=== PATIENT | male | born 2000 | race Caucasian/White ===

== ENCOUNTER 2022-07-03 16:31 | Outpatient (CLI) | payer BC, SELFPAY ==
[2022-07-03 16:50] LABS: Basophils Absolute Auto 0.05 K/mm3 (0.00-0.10); Basophils Percent Auto 0.5 % (0.0-1.0); Eosinophils Absolute Auto 0.24 K/mm3 (0.02-0.50); Eosinophils Percent Auto 2.5 % (1.0-6.0); Hematocrit 44.1 % (40.0-54.0); Hemoglobin 14.7 g/dL (14.0-18.0); Immature Granulocyte Absolute 0.04 K/mm3 (0.00-0.00); Immature Granulocyte Percent A 0.4 % (0.0-0.0); Lymphocytes Percent Auto 24.8 % (18.0-42.0); Mean Corpuscular HGB Conc 33.3 g/dL (32.0-36.0); Mean Corpuscular Hemoglobin 29.2 pg (27.0-31.0); Mean Corpuscular Volume 87.5 fL (78.0-102.0); Monocytes Percent Auto 9.3 % (2.0-11.0); Neutrophils Absolute Auto 6.1 K/mm3 (1.7-7.2); Neutrophils Percent Auto 62.5 % (50.0-70.0); Platelet Count Result 275 K/mm3 (150-420); Red Blood Count 5.04 M/mm3 (4.70-6.10); Red Cell Distribution Width 12.2 % (11.6-14.4); White Blood Count 9.7 K/mm3 (4.8-10.8)
[2022-07-03 17:18] LABS: Hemoglobin A1C 5.3 % (<5.7)
[2022-07-03 17:29] LABS: Alanine Aminotransferase 135 U/L (16-63); Albumin Level 4.7 g/dL (3.4-5.0); Alkaline Phosphatase 82 U/L (46-116); Anion Gap 8 mmol/L (8-16); Aspartate Amino Transferase 34 U/L (15-37); Bilirubin,Total 1.5 mg/dL (0.00-1.00); Blood Urea Nitrogen 12 mg/dL (7-18); Carbon Dioxide 28 mmol/L (21-32); Chloride 104 mmol/L (98-108); Cholesterol 153 mg/dL (0-200); Estimated Glomerular Filt Rate > 60; Glucose 91 mg/dL (70-99); HDL Direct 32 mg/dL (40-60); LDL Cholesterol Calculated 100 mg/dL (<130); Osmolality Calculated 289 mOsm/kg (285-295); Potassium 4.6 mmol/L (3.5-5.1); Sodium 140 mmol/L (136-145); Thyroid Stimulating Hormone 1.08 uIU/mL (0.36-3.74); Total Protein 7.4 g/dL (6.4-8.2); Triglycerides 105 mg/dL (0-150)
== END 2022-07-03 16:32 | disposition home or self-care (01) ==
LOC: CHSLAB 16:33
PROVIDERS: PCP Nurse Practitioner Family; Visit Provider Nurse Practitioner Family
DX: R42 Dizziness and giddiness (principal); Z83.3 Family history of diabetes mellitus
CPT/HCPCS: 36415; 80053; 80061; 83036; 84443; 85025

== ENCOUNTER 2023-10-07 19:31 | Emergency (ER) | payer SELFPAY ==
[2023-10-07 19:39] VITALS: BP 142/92; PULSE 98; RESP 20; TEMP 36.7; O2SAT 96
--- NOTE | 2023-10-07 19:42 | ED.GENADULT ---
HPI - General Adult General Chief complaint: Anxiety Stated complaint: Anxiety Time Seen by Provider: 10/07/23 19:34 History of Present Illness HPI narrative: this is a 23-year-old male with history of anxiety presenting for anxiety attack. Patient was started on escitalopram several months ago. Overall his anxiety is improved until the last 3 days. He has become tearful and unable sleep at night. He cites multiple personal stressors including his recently becoming again after a miscarriage in march, his mother's been diagnosed with cancer and buying a new home. Patient denies suicidal or homicidal ideation. Patient does not have access to a firearm. No other physical complaints this time. Related Data Allergies Allergy/AdvReac Type Severity Reaction Status Date / Time Venlafaxine AdvReac Intermediate Sweating Uncoded 10/07/23 19:36 PMFSH Family History Family History Mother Depression Anxiety Scoliosis Chronic back pain Father Diabetes mellitus Chronic back pain Sibling Scoliosis Depression Anxiety Social History Social History Smoking status: Current every day smoker Tobacco type: e-cigarettes/vaping Alcohol intake: current Alcohol use details: occasional Substance use: current Substance use type: does not use Exam Narrative: APPEARANCE: tearful Head: atraumatic. EYES: EOMI, NOSE: Atraumatic NECK: Trachea midline RESPIRATORY: No increased rate of breathing CARDIOVASCULAR: RRR, ABDOMINAL: Non-distended MUSCULOSKELETAl: No obvious deformities NEURO: Alert. Moving 4/4 extremities SKIN:: Warm, dry. Normal color PSYCHIATRIC: patient is tearful crying Medical Decision Making MDM Narrative Medical decision making narrative: -Course: 23-year-old male presenting with increased anxiety. No SI HI. Patient will be given IM dose of Valium. Discharged on hydroxyzine. Has follow-up in 2 days -DDX includes but is not limited to: anxiety, panic disorder, adjustment disorder -Co-morbidities complicating care: anxiety depression -Interventions: 10 mg IM Valium -Shared decision making / Disposition: discharged -RX hydroxyzine Discharge Plan Discharge Clinical Impression: Anxiety Patient Disposition: Home, Self-Care Condition: Stable Instructions: Antibiotic Form, Anxiety (ED) Additional Instructions: please use hydroxyzine as needed. Please follow-up with your primary care physician your appointment on . Return if you develop thoughts of harming herself or others. Prescriptions: New hydroxyzine HCl 25 mg tablet 25 mg PO TID PRN (Reason: anxiety) Qty: 30 0RF No Action omeprazole 40 mg capsule,delayed release(DR/EC) 40 mg PO DAILY Qty: 90 2RF Rx Instructions: Take 1 capsule (40 mg) by mouth daily, preferably 30 mins-1 hour before meal. escitalopram oxalate [Lexapro] 10 mg tablet 10 mg PO DAILY 70 Days Qty: 70 0RF Follow-up/Referrals: Wally Potts APRN [Primary Care Provider] -
[2023-10-07] MEDS: diazePAM INJ (*CRX) 10 MG/2 ML SYRINGE IM (19:48)
[2023-10-07 20:18] VITALS: BP 133/74; PULSE 68; RESP 16; O2SAT 99
== END 2023-10-07 20:19 | disposition home or self-care (01) ==
PROVIDERS: Emergency Provider Emergency Medicine; PCP Nurse Practitioner Family
DX: F41.9 Anxiety disorder, unspecified (principal); F17.290 Nicotine dependence, other tobacco product, uncomplicated
CPT/HCPCS: 96372; 99283; J3360

== ENCOUNTER 2023-10-15 03:52 | Emergency (ER) | payer SELFPAY ==
[2023-10-15 04:11] VITALS: BP 134/66; PULSE 68; RESP 18; TEMP 37; O2SAT 99
--- NOTE | 2023-10-15 04:17 | ED.ANXIETY ---
HPI - Anxiety General Chief Complaint: Anxiety Stated Complaint: Panic Attack Time Seen by Provider: 10/15/23 04:09 Source: patient Mode of arrival: ambulatory Limitations: no limitations History of Present Illness HPI narrative: Patient is a 23-year-old male with some anxiety this evening. He is newly on a regimen of BuSpar and Xanax. He has not taken Xanax since yesterday. complaint: anxiety Onset (ago): week(s) Symptoms: sense of impending doom and muscle cramps Severity: moderate Quality: constant Place: home History of similar episodes: Yes Provoking factors: emotional stress and work/job stress Relieving factors: medication Exacerbating factors: medication Associated symptoms: denies other symptoms Related Data Allergies Allergy/AdvReac Type Severity Reaction Status Date / Time Venlafaxine AdvReac Intermediate Sweating Uncoded 10/15/23 04:05 Review of Systems Review of Systems: All systems reviewed & are unremarkable except as noted in HPI and below Constitutional: Constitutional: Reports no additional constitutional complaints Eyes: Eyes: Reports no additional eye complaints ENT: Reports system reviewed and no additional complaints, except as documented Cardiovascular: Cardiovascular: Reports no additional cardiovascular complaints Respiratory: Respiratory: Reports no additional respiratory complaints Gastrointestinal: Gastrointestinal: Reports no additional gastrointestinal complaints Genitourinary: Genitourinary: Reports no additional male genitourinary complaints Musculoskeletal: Musculoskeletal: Reports no additional musculoskeletal complaints Integumentary/Breasts: Skin/Breast: Reports system reviewed and no additional complaints, except as docu Neurologic: Reports system reviewed and no additional complaints, except as documented Psychiatric: Psychiatric: Reports no additional psychiatric complaints Endocrine: Endocrine: Reports no additional endocrine complaints Hematologic/Lymphatic: Hematologic/Lymphatic: Reports no additional hematologic/lymphatic complaints Allergic/Immunologic: Allergic/Immunologic: Reports no additional allergic/immunologic complaints PMFSH Family History Family History Mother Depression Anxiety Scoliosis Chronic back pain Father Diabetes mellitus Chronic back pain Sibling Scoliosis Depression Anxiety Social History Social History Smoking status: Current every day smoker Tobacco type: e-cigarettes/vaping Alcohol intake: current Alcohol use details: occasional Substance use: current Substance use type: does not use Exam Const: General: healthy appearing Nutritional Appearance: well nourished Orientation/consciousness: patient oriented x3 HENMT: Head: normal to inspection Ears: external ears normal Face/Nose/Sinus: Normal external nose present Eyes: Conjunctivae: conjunctivae normal Pupils: Equal, round and reactive pupils present EOM: EOMs intact bilaterally Neck: Neck: normal visual inspection Chest: Chest palpation & inspection: normal inspection of the chest Resp: Effort & Inspection: normal respiratory effort and not labored Auscultation: clear to auscultation bilaterally Cardio: Rate: regular rate Rhythm: regular rhythm Heart sounds: no murmurs GI: Inspection: non-distended GI Palp: Yes Soft to palpation and No Tenderness to palpation present (GI) Auscultation: normal bowel sounds : General: Yes bladder normal to palpation Back/Spine/Pelvis: Back: no CVA tenderness Skin: General skin exam: normal color Rashes: no rashes Wounds: no wounds Neuro: General: patient oriented x3 Cranial nerves: Yes Nystagmus not present Speech: normal speech Extrem: General: normal to inspection Psych: Mental Status: mental status grossly normal Affect: No normal affect, No Sad affect present and Anxious a
[2023-10-15] MEDS: LORazepam INJ (*CRX) 2 MG/ML VIAL 1 MG IM (04:39)
[2023-10-15 05:07] VITALS: BP 125/84; PULSE 58; RESP 16; O2SAT 98
== END 2023-10-15 05:08 | disposition home or self-care (01) ==
LOC: CHSED 05:03
PROVIDERS: Emergency Provider Emergency Medicine; PCP Nurse Practitioner Family
DX: F41.9 Anxiety disorder, unspecified (principal); F17.290 Nicotine dependence, other tobacco product, uncomplicated
CPT/HCPCS: 96372; 99283; J2060

== ENCOUNTER 2024-03-20 04:59 | Emergency (ER) | payer BC, SELFPAY ==
[2024-03-20 05:15] VITALS: BP 144/87; PULSE 56; RESP 15; TEMP 36.5; O2SAT 100
--- NOTE | 2024-03-20 06:06 | ED.BACK ---
HPI - Back Pain/Injury General Chief Complaint: Back Pain/Injury Stated Complaint: back pain Time Seen by Provider: 03/20/24 05:18 History of Present Illness HPI Narrative: Patient is a 23-year-old male who presents to the emergency department this evening complaining of lower back pain. Patient states that he was smoking weed and accidentally inhaled too much and started to cough violently, shortly after patient started to develop some lower back pain and patient believes that he pulled muscle. Denies any recent falls or trauma, denies any heavy lifting and denies any additional symptoms or concerns including any dysuria or hematuria. Patient denies any fevers or chills. Related Data Home Medications Medication Instructions Recorded Confirmed escitalopram oxalate 10 mg tablet 10 mg PO DAILY 03/21/24 03/21/24 Allergies Allergy/AdvReac Type Severity Reaction Status Date / Time Venlafaxine AdvReac Intermediate Sweating Uncoded 03/21/24 11:24 Review of Systems Review of Systems: All systems are reviewed and are negative unless stated otherwise in the HPI. PMFSH Family History Family History Mother Depression Anxiety Scoliosis Chronic back pain Father Diabetes mellitus Chronic back pain Sibling Scoliosis Depression Anxiety Social History Social History Smoking status: Current every day smoker Tobacco type: e-cigarettes/vaping Alcohol intake: current Alcohol use details: occasional Substance use: current Substance use type: does not use Exam Narrative: General: Alert, awake, afebrile, in no acute distress. HEENT: PERRL, no rhinorrhea, no post nasal drip, oropharynx clear. Cardiovascular: Regular rate and rhythm, no murmurs, rubs or gallops, no peripheral edema. Respiratory: Clear to auscultation bilaterally, no tachypnea, no wheezing, no rhonchi, no rubs, no respiratory distress. Abdomen: Soft, nontender, nondistended, no rebound, no guarding, no peritoneal signs. Musculoskeletal: No joint swelling or deformity, normal muscle tone. Back: Tenderness to palpation over the paraspinal lumbar region, no midline tenderness to palpation over the lumbar spine. Skin: No rashes or petechia, no signs of infection. Neurological: Alert and oriented to person, place, and time. Follows all commands. No focal deficits, speech is clear and fluent. Course Vital Signs Vital signs: Vital Signs Temperature 97.7 F 03/20/24 05:15 Pulse Rate 56 L 03/20/24 05:15 Respiratory Rate 15 03/20/24 05:15 Blood Pressure 144/87 H 03/20/24 05:15 Pulse Oximetry 100 03/20/24 05:15 Oxygen Delivery Room Air 03/20/24 05:15 Temperature 97.7 F 03/20/24 05:15 Pulse Rate 61 03/20/24 06:48 Respiratory Rate 15 03/20/24 06:48 Blood Pressure 146/80 H 03/20/24 06:48 Pulse Oximetry 100 03/20/24 06:48 Oxygen Delivery Room Air 03/20/24 05:15 MDM - Back Pain/Injury MDM Narrative Medical decision making narrative: The patient was evaluated by myself in the emergency department. History is obtained from patient who is an independent historian and physical exam was performed. External medical records were reviewed at this time. Patient was administered 15 mg of IM Toradol, Lidoderm patch and oral [place] 10-325 mg. Differential diagnosis considerations include musculoskeletal injury/ back sprain. Comorbidities impacting this visit include none. I have evaluated and discussed social determinants of health with the patient that could potentially impact subsequent diagnosis and treatment plans. On repeat assessment of the patient, reevaluation revealed that the patient is doing well and is in no acute distress. Patient symptoms have improved since he arrived to our emergency department. Repeat vital signs were all reviewed and noted to be stable. Differential tiffanie
[2024-03-20] MEDS: HYDROcodone/acetaminophen (*CRX) 10-325 MG TABLET 1 TAB PO (06:07)
[2024-03-20] MEDS: KETOROLAC 15 MG/ML VIAL (*BKC) IM (06:07)
[2024-03-20] MEDS: LIDOCAINE 5% PATCH 1 PATCH TRANSDERM (06:11)
[2024-03-20 06:48] VITALS: BP 146/80; PULSE 61; RESP 15; O2SAT 100
== END 2024-03-20 06:49 | disposition home or self-care (01) ==
PROVIDERS: Emergency Provider Emergency Medicine; PCP Nurse Practitioner Family
DX: S39.012A Strain of muscle, fascia and tendon of lower back, initial encounter (principal); X50.0XXA Overexertion from strenuous movement or load, initial encounter; F17.290 Nicotine dependence, other tobacco product, uncomplicated
CPT/HCPCS: 96372; 99283; A9270; J1885

== ENCOUNTER 2024-03-21 11:08 | Emergency (ER) | payer BC, SELFPAY ==
--- NOTE | ~2024-03-21 | XR_ITS ---
Lumbosacral Spine: AP and lateral views Clinical History: Pain Findings: The normal lordotic curve is maintained. The vertebral bodies and posterior elements are i ntact. The intervertebral disc spaces are preserved. The sacroiliac joints are normally outlined. Impression: No significant abnormality. Reviewed, dictated and finalized at [facility]. Impression: No significant abnormality.
--- NOTE | ~2024-03-21 | XR_ITS ---
AP and oblique views of the bilateral ribs, and PA and lateral chest radiographs Clinical History: Pain Findings: No rib fracture is seen. Osseous alignment is anatomic. Lungs are clear, without focal cons olidation or pleural effusion. Cardiomediastinal contour is within normal limits. Soft tissues are un remarkable. Impression: No rib fracture is seen. Clear lungs. Reviewed, dictated and finalized at location . Impression: No rib fracture is seen. Clear lungs.
[2024-03-21 11:09] VITALS: BP 148/111; PULSE 74; RESP 20; TEMP 36.4; O2SAT 96
--- NOTE | 2024-03-21 11:09 | ED.BACK ---
HPI - Back Pain/Injury General Chief Complaint: Back Pain/Injury Stated Complaint: back pain Time Seen by Provider: 03/21/24 11:09 Source: patient Mode of arrival: ambulatory Limitations: no limitations History of Present Illness HPI Narrative: patient is a 23-year-old male with lower back pain after coughing heavy yesterday. He also has pain up his spine and to the paraspinal areas. He had an injury over a month ago but that pain has resolved at this time. MD elicited complaint: back pain and back injury Pertinent past history: prior back pain Onset (ago): day(s) (1) Timing: constant Severity: severe Pain scale (0-10): 9 Similar Symptoms Previously: Yes Quality: sharp Location: lumbar spine Radiation: none Exacerbating factors: movement, walking, deep breaths, coughing/sneezing and lifting Relieving factors: immobilization and sitting upright Context: other ( patient was heavy coughing yesterday and sustained a pop sound in his musculoskeletal system and now he is having severe lumbar pain) Associated symptoms: denies other symptoms Related Data Home Medications Medication Instructions Recorded Confirmed escitalopram oxalate 10 mg tablet 10 mg PO DAILY 03/21/24 03/21/24 Allergies Allergy/AdvReac Type Severity Reaction Status Date / Time Venlafaxine AdvReac Intermediate Sweating Uncoded 03/21/24 11:24 Review of Systems Review of Systems: All systems reviewed & are unremarkable except as noted in HPI and below Constitutional: Constitutional: Reports no additional constitutional complaints Eyes: Eyes: Reports no additional eye complaints ENT: Reports system reviewed and no additional complaints, except as documented Cardiovascular: Cardiovascular: Reports no additional cardiovascular complaints Respiratory: Respiratory: Reports no additional respiratory complaints Gastrointestinal: Gastrointestinal: Reports no additional gastrointestinal complaints Genitourinary: Genitourinary: Reports no additional male genitourinary complaints Musculoskeletal: Musculoskeletal: Reports no additional musculoskeletal complaints Integumentary/Breasts: Skin/Breast: Reports system reviewed and no additional complaints, except as docu Neurologic: Reports system reviewed and no additional complaints, except as documented Psychiatric: Psychiatric: Reports no additional psychiatric complaints Endocrine: Endocrine: Reports no additional endocrine complaints Hematologic/Lymphatic: Hematologic/Lymphatic: Reports no additional hematologic/lymphatic complaints Allergic/Immunologic: Allergic/Immunologic: Reports no additional allergic/immunologic complaints PMFSH Family History Family History Mother Depression Anxiety Scoliosis Chronic back pain Father Diabetes mellitus Chronic back pain Sibling Scoliosis Depression Anxiety Social History Social History Smoking status: Current every day smoker Tobacco type: e-cigarettes/vaping Alcohol intake: current Alcohol use details: occasional Substance use: current Substance use type: does not use Exam Const: General: healthy appearing Nutritional Appearance: well nourished Orientation/consciousness: patient oriented x3 HENMT: Head: normal to inspection Ears: external ears normal Face/Nose/Sinus: Normal external nose present Eyes: Conjunctivae: conjunctivae normal Pupils: Equal, round and reactive pupils present EOM: EOMs intact bilaterally Neck: Neck: normal visual inspection Chest: Chest palpation & inspection: normal inspection of the chest Resp: Effort & Inspection: normal respiratory effort and not labored Auscultation: clear to auscultation bilaterally and no crackles Cardio: Rate: regular rate Rhythm: regular rhythm Heart sounds: no murmurs GI: Inspection: non-distended Auscultation: normal bowel sounds, bowel sounds presen
[2024-03-21] MEDS: ORPHENADRINE CITRATE 30 MG/ML 2 ML VIAL 60 MG IM (11:35)
[2024-03-21] MEDS: KETOROLAC (*BKC) 60 MG/2 ML VIAL IM (11:35)
== END 2024-03-21 12:04 | disposition home or self-care (01) ==
PROVIDERS: Emergency Provider Emergency Medicine; PCP Nurse Practitioner Family
DX: S39.012A Strain of muscle, fascia and tendon of lower back, initial encounter (principal); F17.290 Nicotine dependence, other tobacco product, uncomplicated; X58.XXXA Exposure to other specified factors, initial encounter
CPT/HCPCS: 71046; 71110; 72100; 96372; 99284; J1885; J2360

== ENCOUNTER 2024-04-02 13:49 | Emergency (ER) | payer BC, SELFPAY ==
--- NOTE | ~2024-04-02 | CT_ITS ---
EXAMINATION: CT abd pelvis lumbar wo con DATE: 04/02/2024 15:31 INDICATION: Low back pain and scrotal pain TECHNIQUE: Computed tomography (CT) of the abdomen, pelvis and lumbar spine was performed without int ravenous contrast. Automated exposure control and iterative reconstruction technique were employed. T he dose-length product was 1395.98 mGy-cm. COMPARISON: None FINDINGS: Lung bases are clear. Heart size is normal. No pericardial or pleural effusion. Liver, gallbladder, s pleen, pancreas, bilateral adrenal glands and kidneys are normal. No urolithiasis. Bladder is normal. Bowels including the appendix are normal. No free intraperitoneal gas or fluid. No pathologically en larged abdominal or pelvic lymphadenopathy. Tiny fat-containing umbilical hernia. Mild likely physiol ogic anterior wedging at T11 and T12. Lumbar vertebral body heights are normal. Bilateral mild bilate ral lumbar facet osteoarthritis. Mild disc height loss at L4-L5 and at multiple levels in the lower t horacic spine. There is an associated disc bulge at L4-L5 which contributes to mild central canal tere nosis and narrowing of the left and right lateral recesses as well as mild bilateral neural foraminal stenosis. IMPRESSION: 1. No acute intra-abdominal/pelvic process. 2. Mild lumbar spondylosis. Reviewed, dictated and finalized at location B.
--- NOTE | ~2024-04-02 | US_ITS ---
TESTICULAR ULTRASOUND (Doppler ultrasound interrogation techniques used as needed for this exam.) Ordering provider: Екатерина Reardon History: . mckenzie pain, lbp . Comparison: None. FINDINGS: TESTICLES: Normal in size. The right measures 5.4x 2.8x 3.8 cm and the left measures 4.9x 2.3x 3.2 cm . Normal echogenicity bilaterally without mass lesion. Normal Doppler flow bilaterally. EPIDIDYMIDES: Normal in size. The right measures 0.7 cm and the left 0.6 cm. Normal echogenicity bila terally. Both demonstrate normal Doppler flow. Tiny Cyst is seen in the tail of the left epididymis. HYDROCELE: Small right. VARICOCELE: Left. OTHER ABNORMALITY: None seen. IMPRESSION: Tiny cyst in the tail of the left epididymis. Left varicocele. Otherwise, normal testicular ultrasoun d. Reviewed, dictated and finalized at location A. IMPRESSION: Tiny cyst in the tail of the left epididymis. Left varicocele. Otherwise, rudy l testicular ultrasound.
[2024-04-02 13:51] VITALS: BP 120/76; PULSE 72; RESP 18; TEMP 36.4; O2SAT 100
--- NOTE | 2024-04-02 14:43 | ED.BACK ---
HPI - Back Pain/Injury General Chief Complaint: Back Pain/Injury <SIOMARA Haynes Last Filed: 04/02/24 15:00> Stated Complaint: back problems <SIOMARA Haynes Last Filed: 04/02/24 15:00> Time Seen by Provider: 04/02/24 14:43 <SIOMARA Haynes Last Filed: 04/02/24 15:00> Focused HPI: Patient is a 23 y/o male who presents to the ED with c/o low back pain. Patient reports he strained his back several weeks ago after coughing. He has had persistent pain in his lower back radiating into his hips and legs since then. He was seen in the ED here, was also seen at [place] ED and by his PCP. Was referred to have an MRI, but states his insurance refused this. He has been taking [place] for the pain. Last took this this morning. He reports he has had intermittent numbness in his left leg since before he injured his back, but over the last few days, he has been having intermittent numbness throughout his groin and both legs. He also reports having pain in his scrotum. Denies dysuria, hematuria, bowel or bladder incontinence, weakness, fevers. GENERAL: Well-appearing, obese with BMI of 34.7, and in no acute distress. HEAD: Normocephalic, atraumatic. CHEST: Clear to auscultation. ?No respiratory distress. HEART: Regular rate and rhythm.? BACK: Diffuse tenderness throughout lumbosacral region. No appreciable midline tenderness. No palpable bony deformities or step offs. NEURO: ?Alert and oriented x3. Patient screened in triage and initial orders placed.? ?Additional care and disposition to be based upon?diagnostic testing and treatment. <SIOMARA Haynes Last Filed: 04/02/24 15:00> Source: patient and old records reviewed <SIOMARA Haynes Last Filed: 04/02/24 15:00> Mode of arrival: ambulatory <SIOMARA Haynes Last Filed: 04/02/24 15:00> Limitations: no limitations <Екатерина Reardon PA-C - Last Filed: 04/02/24 15:00> History of Present Illness HPI Narrative: agree with the above with the following additions/corrections: Patient continues to have low back problems for the past 3 weeks. He notes that radiates down his legs and into his groin. He will occasionally experience numbness into his groin as well as anterior thighs that this occurs intermittently bilaterally although he states pain predominates over paresthesias. These issues stop at his kneecaps. Patient Experiences relief with lying down. No bladder or bowel incontinence. No difficulty with getting a penile erection. He has been seen here and [place] and his primary care physician Dr Fenton ([facility]) had ordered an MRI but it was initially declined by insurance as he has not been sympatomatic for enough time. <Corinna Moreland MD - Last Filed: 04/03/24 08:51> Related Data Allergies/Adverse Reactions: Allergies Allergy/AdvReac Type Severity Reaction Status Date / Time Venlafaxine AdvReac Intermediate Sweating Uncoded 04/02/24 13:50 <Екатерина Reardon PA-C - Last Filed: 04/02/24 15:00> PMFSH Family History Family History: Family History Mother Depression Anxiety Scoliosis Chronic back pain Father Diabetes mellitus Chronic back pain Sibling Scoliosis Depression Anxiety <Екатерина Reardon PA-C - Last Filed: 04/02/24 15:00> Social History Social History: Social History Smoking status: Current every day smoker Tobacco type: e-cigarettes/vaping Alcohol intake: current Alcohol use details: occasional Substance use: current Substance use type: does not use <Екатерина Reardon PA-C - Last Filed: 04/02/24 15:00> Exam Narrative: GENERAL: Well-appearing, well-nourished, in mild acute distress. HEAD: Normocephalic, atraumatic. EYES: Non injected, non icteric ENT: N
[2024-04-02] MEDS: methocarbamoL 500 MG TABLET 1000 MG PO (14:54)
[2024-04-02] MEDS: ACETAMINOPHEN 500 MG TABLET 1000 MG PO (14:54)
[2024-04-02] MEDS: methylPREDNISolone SOD SUCC 125 MG VIAL IM (14:55)
[2024-04-02] MEDS: KETOROLAC (*BKC) 60 MG/2 ML VIAL IM (14:55)
[2024-04-02 15:59] LABS: Add Urine Microscopic? NO; Appearance Urine Clear (Clear); Bilirubin Urine Negative (Negative); Blood Urine Negative (Negative); Color Urine Yellow (Yellow); Glucose Urine UA Negative (Negative); Ketones Urine Negative (Negative); Leukocyte Esterase Ur Negative LEU/UL (Negative); Nitrate Urine Negative (Negative); Protein Urine Negative (Negative); Specific Grav Ur 1.026 (1.001-1.035); Urobilinogen Urine 0.2 mg/dL (<2.0)
[2024-04-02 17:29] LABS: Basophils Absolute Auto 0.1 K/mm3 (0.0-0.1); Basophils Percent Auto 0.6 % (0.2-1.2); Eosinophils Absolute Auto 0.1 K/mm3 (0-0.3); Eosinophils Percent Auto 0.7 % (0-4.4); Hematocrit 44.3 % (42.0-52.0); Hemoglobin 15.3 g/dL (14.0-18.0); Immature Granulocyte Absolute 0.06 K/mm3 (0.00-0.031); Immature Granulocyte Percent A 0.6 % (0-0.5); Lymphocytes Absolute Auto 1.19 K/mm3 (0.9-3.2); Lymphocytes Percent Auto 11.4 % (18.3-44.2); Mean Corpuscular HGB Conc 34.5 g/dl (32-36); Mean Corpuscular Hemoglobin 30.1 pg (26-34); Mean Platelet Volume 8.9 fl (7.4-10.4); Monocytes Absolute Auto 0.4 K/mm3 (0.1-0.6); Monocytes Percent Auto 3.3 % (2.6-8.5); Neutrophils Absolute Auto 8.7 K/mm3 (1.3-6.7); Neutrophils Percent Auto 83.4 % (45.5-73.1); Platelet Count Result 256 k/mm3 (150-375); Red Blood Count 5.09 M/mm3 (4.6-6.20); Red Cell Distribution Width 11.9 % (11.5-14.5); White Blood Count 10.5 K/mm3 (4.5-10.0)
[2024-04-02 17:38] LABS: Alanine Aminotransferase 29 U/L (6-50); Albumin Level 4.7 g/dL (3.5-5.1); Alkaline Phosphatase 48 U/L (38-126); Anion Gap 11 mmol/L (4-12); Aspartate Amino Transferase 24 U/L (17-59); Bilirubin,Total 1.3 mg/dL (0.2-1.3); Blood Urea Nitrogen 12 mg/dL (9-20); Calcium 9.3 mg/dL (8.4-10.2); Carbon Dioxide 22 mmol/L (22-30); Chloride 103 mmol/L (98-107); Creatine Kinase 74 U/L (55-170); Estimated CRCL calculation 184 ml/min; Estimated Glomerular Filt Rate > 60; Glucose 99 mg/dL (65-110); Magnesium 1.9 mg/dL (1.6-2.3); Potassium 3.8 mmol/L (3.4-5.0); Sodium 136 mmol/L (137-145)
[2024-04-02 17:42] LABS: Trichomonas Vag PCR NOT DETECTED (NOT DETECTE)
[2024-04-02 18:04] LABS: Chlamydia trachomatis NOT DETECTED (NOT DETECTE); Neisseria gonorrhoeae PCR NOT DETECTED (NOT DETECTE)
[2024-04-02 19:06] VITALS: BP 128/80; PULSE 86; RESP 20; O2SAT 97
[2024-04-02] MEDS: HYDROcodone/acetaminophen (*CRX) 5-325 MG TABLET 1 TAB PO (19:12)
== END 2024-04-02 19:18 | disposition home or self-care (01) ==
PROVIDERS: Physician Assistant; Emergency Provider Student in an Organized Health Care Education/Training Program; PCP Nurse Practitioner Family
DX: N50.3 Cyst of epididymis (principal); I86.1 Scrotal varices; M47.816 Spondylosis without myelopathy or radiculopathy, lumbar region; D72.829 Elevated white blood cell count, unspecified; N50.82 Scrotal pain; F17.290 Nicotine dependence, other tobacco product, uncomplicated; Z79.899 Other long term (current) drug therapy
CPT/HCPCS: 36415; 72131; 74176; 76870; 80053; 81003; 82550; 83735; 85025; 87491; 87591; 87661; 93976; 96372; 99284; A9270; J1885; J2919

== ENCOUNTER 2024-10-12 16:55 | Outpatient (CLI) | payer OTHER, SELFPAY ==
--- OUTSIDE RECORDS SUMMARY | 2024-10-12 18:45 | XMS_ITS | Clinical Summary ---
Author Organization [facility] Address [address] [place] [address] Care Team Providers Care Nurse Behavioral Health Care Name Role Phone Wally Potts SENIOR COURT OFFICE ASSISTANT-LEAN ENGINEER Primary Care Provider [phone] Source Comments [facility],non-owned Affiliates and Associated Physician Practices is amultiple site organization consisting of ambulatory clinics and hospital sitesin [place], [place], [place] and [place]. This disclosure is being madepursuant to the Care Everywhere program and may not contain all information available regarding this patient. Last updated 18.[facility] Allergies No known active allergies Medications * Be aware that medications may not be up to date on this document. Alwaysverify current medications with the patient. Medication Sig Dispensed Refills Start Date End Date Status famotidine (Pepcid) 20 MG tablet Take 1 (one) tablet by mouth every 12 hours for 15 days 30 tablet 07/26/2024 Active Encounters Date Type Department Care Team Description 07/25/2024 10:58 PM WAREHOUSE OPERATIONS ASSOCIATE - 07/26/2024 4:02 AM WAREHOUSE OPERATIONS ASSOCIATE Emergency ER at [address] [address] Keysha Stone MD Nausea and vomiting, unspecified vomiting type; Abdominal pain, generalized Discharge Disposition: Home or Self Care 07/25/2024 Travel from Last 3 Months Social History Tobacco Use Types Packs/Day Years Used Date Smoking Tobacco: Never Assessed Sex and Gender Information Value Date Recorded Sex Assigned at Not on file Gender Identity Not on file Sexual Orientation Not on file Last Filed Vital Signs Vital Sign Reading Time Taken Comments Blood Pressure 144/87 07/26/2024 4:00 AM WAREHOUSE OPERATIONS ASSOCIATE Pulse 53 07/26/2024 4:00 AM WAREHOUSE OPERATIONS ASSOCIATE Temperature 36.7 C (98 F) 07/26/2024 4:00 AM WAREHOUSE OPERATIONS ASSOCIATE Respiratory Rate 13 07/26/2024 4:00 AM WAREHOUSE OPERATIONS ASSOCIATE Oxygen Saturation 98% 07/26/2024 4:00 AM WAREHOUSE OPERATIONS ASSOCIATE Inhaled Oxygen Concentration - - Weight 122.5 kg (270 lb) 07/25/2024 11:00 PM WAREHOUSE OPERATIONS ASSOCIATE Height 182.9 cm (6') 07/25/2024 11:00 PM WAREHOUSE OPERATIONS ASSOCIATE Body Mass Index 36.62 07/25/2024 11:00 PM WAREHOUSE OPERATIONS ASSOCIATE Plan of Treatment Health Maintenance Due Date Last Done Comments HIV SCREENING 2014 HPV VACCINE (1 - Male 3-dose series) 2014 HEPATITIS C SCREENING 07/14/2017 DTAP/TDAP/TD VACCINES (1 - Tdap) 2018 HEPATITIS B VACCINE (1 of 3 - 19+ 3-dose series) 2018 COVID-19 VACCINE (1 - 2023-2 5 season) 2024 INFLUENZA VACCINE (#1) 2024 DEPRESSION SCREENING 07/21/2024 ZOSTER VACCINE (1 of 2) 2049 HIB VACCINE Aged Out No longer eligi ble based on patient's age to complete this topic MENINGOCOCCAL (Group B) VACC INE SHARED DECISION-MAKING Aged Out No longer eligibl e based on patient's age to complete this topic MENINGOCOCCAL GROUPS A/C/Y/W VACCINE Aged Out No longer eligible b ased on patient's age to complete this topic PNEUMOCOCCAL VACCINE Aged Out No long er eligible based on patient's age to complete this topic Procedures Procedure Name Priority Date/Time Associated Diagnosis Comments CT ABDOMEN PELVIS W CONTRAST STAT 07/26/2024 2:35 AM WAREHOUSE OPERATIONS ASSOCIATE Nausea and vomiting, unspecified vomiting type Abdominal pain, generalized PT-INR STAT 07/25/2024 11:50 PM WAREHOUSE OPERATIONS ASSOCIATE SARS-COV-2 (COVID-19) FLU A/B RSV PCR RAPID STAT 07/25/2024 11:40 PM WAREHOUSE OPERATIONS ASSOCIATE XR CHEST 1VW PORTABLE STAT 07/25/2024 11:39 PM WAREHOUSE OPERATIONS ASSOCIATE Nausea and vomiting, unspecified vomiting type MAGNESIUM BLOOD STAT 07/25/2024 11:36 PM WAREHOUSE OPERATIONS ASSOCIATE LIPASE BLOOD STAT 07/25/2024 11:36 PM WAREHOUSE OPERATIONS ASSOCIATE COMPREHENSIVE METABOLIC PANEL STAT 07/25/2024 11:36 PM WAREHOUSE OPERATIONS ASSOCIATE CBC W AUTO DIFFERENTIAL STAT 07/25/2024 11:36 PM WAREHOUSE OPERATIONS ASSOCIATE from Last 3 Months Results * CT ABDOMEN PELVIS W CONTRAST (07/26/2024 2:35 AM WAREHOUSE OPERATIONS ASSOCIATE) Anatomical Region Laterality Modality Abdomen, Pelvis Computed Tomogra phy 07/26/2024 7:17 AM WAREHOUSE OPERATIONS ASSOCIATE Impressions 07/26/2024 7:30 AM WAREHOUSE OPERATIONS ASSOCIATE IMPRESSION: UNREMARKABLE EXAMINATION. > Interpreting Provider: Mindy Cary MD on 07/26/2024 7:30 AM Narrative 07/26/2024 7:30 [address] WAREHOUSE OPERATIONS ASSOCIATE CT ABDOMEN WITH CONTRAST CT PELVIS WITH CONTRAST CLINICAL INDICATION: Severe acute abdominal pain with nausea and vomiting. COMPARISON: None available TECHNIQUE: Preliminary interpretation was provided by [facility]. Axial CT images from the lung bases through the pubic symphysis were obtained following 100 cc Isovue-370 intravenous contrast administration. Oral contrast was not administered. Coronal and sagittal multiplanar reformats were created. All CT scans at [facility] are performed using dose optimization techniques as appropriate to a performed exam to include AEC and Adjustment of mA and/or kV according to patient size. FINDINGS: Liver, spleen, gallbladder, kidneys, adrenal glands, and pancreas are within normal limits. Small and large bowel loops normal in caliber. No bowel wall thickening. Appendix normal. Prostate gland normal in size. Bladder wall normal in thickness. No osteoblastic or osteolytic lesions. No acute bony abnormalities. Procedure Note Mindy Cary MD - 07/26/[address] CT [address] WITH CONTRAST CT PELVIS WITH CONTRAST CLINICAL INDICATION: Severe acute abdominal pain with nausea andvomiting. COMPARISON: None available TECHNIQUE: Preliminary interpretation was provided by [facility]. Axial CT images from the lung bases through the pubic symphysis were obtained following 100 cc Isovue-370 intravenous contrastadministration. Oral contrast was not administered. Coronal and sagittal multiplanar reformats were created. All CT scans at [facility] are performed using dose optimization techniques as appropriate to a performed exam to includeAEC and Adjustment of mA and/or kV according to patient size. FINDINGS: Liver, spleen, gallbladder, kidneys, adrenal glands, and pancreas are within normal limits. Small and large bowel loops normal in caliber. No bowel wall thickening. Appendix normal. Prostate gland normal in size. Bladder wall normal in thickness. No osteoblastic or osteolytic lesions. No acute bony abnormalities. IMPRESSION: UNREMARKABLE EXAMINATION. > Interpreting Provider: Mindy Cary MD on 07/26/2024 7:30 AM Keysha Stone MD CT ORDERABLES * PT-INR (07/25/2024 11:50 PM WAREHOUSE OPERATIONS ASSOCIATE) Pathologist [facility] PT 13.5 12.1 - 14.8 sec 07/26/2024 12:31 AM WAREHOUSE OPERATIONS ASSOCIATE [facility] INR 1.0 0.9 - 1.1 07/26/2024 12:31 AM WAREHOUSE OPERATIONS ASSOCIATE [facility] Blood BLOOD SPECIMEN / Unknown Venipuncture / Unknown 07/25/2024 11:50 PM WAREHOUSE OPERATIONS ASSOCIATE 07/26/2024 12:16 AM WAREHOUSE OPERATIONS ASSOCIATE Narrative [facility] - 07/26/2024 12:31 AM WAREHOUSE OPERATIONS ASSOCIATE Conventional Warfarin Anticoagulant Therapy: INR Reference Range: 2.0-3.0 Intensive Warfarin Anticoagulant Therapy: INR Reference Range: 2.5-3.5 Keysha Stone MD LAB - COAGULATION ORDERABLES Performing Organization Address City/State/[facility] Co de Phone Number [facility] [address] [place] [address] * SARS-COV-2 (COVID-19) FLU A/B RSV PCR RAPID (07/25/2024 11:40 PM WAREHOUSE OPERATIONS ASSOCIATE) Pathologist [facility] COVID-19 PCR Not detected Not detected 07/26/19 12:25 AM WAREHOUSE OPERATIONS ASSOCIATE [facility] Influenza A PCR Not detected Not detected 07/26/2024 12:25 AM WAREHOUSE OPERATIONS ASSOCIATE [facility] Influenza B PCR Not detected Not detected 07/26/2024 12:25 AM [facility] RSV PCR Not detected Not detected 07/26/2024 12:25 AM WAREHOUSE OPERATIONS ASSOCIATE [facility] Microbiology SPECIMEN FROM NASOPHARYNGEAL STRUCTURE / Unknown Collection / Unknown 07/25/2024 11:40 PM WAREHOUSE OPERATIONS ASSOCIATE 07/25/2024 11:48 PM WAREHOUSE OPERATIONS ASSOCIATE Narrative [facility] - 07/26/2024 12:25 AM WAREHOUSE OPERATIONS ASSOCIATE This nucleic acid amplification assay has been authorized by the Food and Drug administration (FDA) under an Emergency Use Authorization (EUA). This test is only authorized for the duration of time the declaration that circumstances exist justifying the authorization of emergency use of in vitro diagnostic tests for detection of SARS-CoV-2 virus and/or diagnosis of COVID-19 infection under section 564(b)(1) of the Act, 21 U.S.C 360bbb-3 (b)(1), unless the authorization is terminated or revoked sooner. Fact Sheets for this EUA assay are available upon request. Idalia Sharma APRN-LEAN ENGINEER LAB - MICROBIOLO GY ORDERABLES Performing Organization Address City/State/[facility] Co de Phone Number [facility] [address] [place] [id number] * XR CHEST 1VW PORTABLE (07/25/2024 11:39 PM WAREHOUSE OPERATIONS ASSOCIATE) Anatomical Region Laterality Modality Chest Computed Radiogr aphy 07/26/2024 8:28 AM WAREHOUSE OPERATIONS ASSOCIATE Impressions 07/26/2024 8:28 AM WAREHOUSE OPERATIONS ASSOCIATE IMPRESSION: No acute disease. > Interpreting Provider: Jack Anderson MD on 07/26/2024 8:28 AM Narrative 07/26/2024 8:28 AM WAREHOUSE OPERATIONS ASSOCIATE Portable Chest AP History: Bloody emesis.. FINDINGS: Lungs are clear. No pleural effusion or pneumothorax seen. Cardiac silhouette within normal limits. Procedure Note Jack Anderson MD - 07/26/2024 Portable Chest AP History: Bloody emesis.. FINDINGS: Lungs are clear. No pleural effusion or pneumothorax seen. Cardiac silhouette within normal limits. IMPRESSION: No acute disease. > Interpreting Provider: Jack Anderson MD on 07/26/2024 8:28 AM Keysha Stone MD DIAGNOSTIC IMAGING ORDERABLES * (ABNORMAL) CBC W AUTO DIFFERENTIAL (07/25/2024 11:36 PM WAREHOUSE OPERATIONS ASSOCIATE) WBC 14.9(H) 4.0 - 10.7 x10E9/L 07/25/2024 11:48 PM [facility] RBC Count 5.63 4.30 - 5.80 x10E12/L 07/25/2024 11:48 PM [facility] Hemoglobin 16.7 13.3 - 17.5 g/dL 07/25/2024 11:48 PM [facility] Hematocrit 47.3 38.7 - 51.1 % 07/25/2024 11:48 PM [facility] MCV 84.0 80.0 - 98.0 fL 07/25/2024 11:48 PM [facility] MCH 29.7 26.7 - 33.6 pg 07/25/2024 11:48 PM [facility] MCHC 35.3 31.7 - 36.3 g/dL 07/25/2024 11:48 PM [facility] RDW-CV 11.8 11.3 - 14.8 % 07/25/2024 11:48 PM [facility] Platelet Count 329 150 - 420 x10E9/L 07/25/2024 11:48 PM [facility] MPV 8.8 7.8 - 11.4 fL 07/25/2024 11:48 PM [facility] Neutrophil % 73.4 41.0 - 74.0 % 07/25/2024 11:48 PM [facility] Lymphocyte % 15.4(L) 17.0 - 47.0 % 07/25/2024 11:48 PM [facility] Monocyte % 10.0 3.0 - 11.0 % 07/25/2024 11:48 PM [facility] Eosinophil % 0.4 0.0 - 7.0 % 07/25/2024 11:48 PM [facility] Basophil % 0.5 0.0 - 1.6 % 07/25/2024 11:48 PM [facility] Immature Granulocytes % 0.3 0.0 - 1.0 % 07/25/2024 11:48 PM [facility] Neutrophil Absolute 10.90(H) 1.60 - 7.50 x10E9/L 07/25/2024 11:48 PM [facility] Lymphocyte Absolute 2.29 1.00 - 4.40 x10E9/L 07/25/2024 11:48 PM [facility] Monocyte Absolute 1.48(H) 0.15 - 1.00 x10E9/L 07/25/2024 11:48 PM [facility] Eosinophil Absolute 0.06 0.00 - 0.60 x10E9/L 07/25/2024 11:48 PM [facility] Basophil Absolute 0.07 0.00 - 0.13 x10E9/L 07/25/2024 11:48 PM [facility] Blood BLOOD SPECIMEN / Unknown Venipuncture / Unknown 07/25/2024 11:36 PM WAREHOUSE OPERATIONS ASSOCIATE 07/25/2024 11:43 PM [facility] Keysha Stone MD LAB - HEMATOLOGY O RDERABLES [facility] [address] [place] [address] * (ABNORMAL) COMPREHENSIVE METABOLIC PANEL (07/25/2024 11:36 PM WAREHOUSE OPERATIONS ASSOCIATE) Glucose 122(H) 70 - 99 mg/dL 07/26/2024 12:01 AM [facility] Sodium 141 136 - 145 mmol/L 07/26/2024 12:01 AM [facility] Potassium 3.6 3.5 - 5.1 mmol/L 07/26/2024 12:01 AM [facility] Chloride 106 98 - 107 mmol/L 07/26/2024 12:01 AM [facility] CO2 20(L) 22 - 29 mmol/L 07/26/2024 12:01 AM [facility] Calcium 10.2 8.4 - 10.4 mg/dL 07/26/2024 12:01 AM [facility] Anion Gap 15 6 - 16 mmol/L 07/26/2024 12:01 AM [facility] BUN 8 5.3 - 18.7 mg/dL 07/26/2024 12:01 AM [facility] Creatinine 0.93 0.72 - 1.25 mg/dL 07/26/2024 12:01 AM [facility] Alkaline Phosphatase 60 40 - 150 U/L 07/26/2024 12:01 AM [facility] ALT 46 0 - 55 U/L 07/26/2024 12:01 AM [facility] AST 27 5 - 34 U/L 07/26/2024 12:01 AM [facility] Protein Total 8.0 6.4 - 8.3 gm/dL 07/26/2024 12:01 AM [facility] Albumin 5.1(H) 3.4 - 5.0 gm/dL 07/26/2024 12:01 AM [facility] Bilirubin Total 1.7(H) 0.2 - 1.2 mg/dL 07/26/2024 12:01 AM [facility] eGFR by CKD-EPI >90 >=90 mL/min/1.7 3 m2 07/26/2024 12:01 AM [facility] Blood BLOOD SPECIMEN / Unknown Venipuncture / Unknown 07/25/2024 11:36 PM WAREHOUSE OPERATIONS ASSOCIATE 07/25/2024 11:43 PM WAREHOUSE OPERATIONS ASSOCIATE Keysha Stone MD LAB - CHEMISTRY OR DERABLES Performing Organization Address [facility] de Phone Number [facility] [id number] [place] [address] * MAGNESIUM BLOOD (07/25/2024 11:36 PM WAREHOUSE OPERATIONS ASSOCIATE) Magnesium 2.1 1.6 - 2.6 mg/dL 07/26/2024 12:01 AM [facility] Blood BLOOD SPECIMEN / Unknown Venipuncture / Unknown 07/25/2024 11:36 PM WAREHOUSE OPERATIONS ASSOCIATE 07/25/2024 11:43 PM WAREHOUSE OPERATIONS ASSOCIATE Keysha Stone MD LAB - CHEMISTRY OR DERABLES Performing Organization Address [facility] Co de Phone Number [facility] [address] [place] [address] * LIPASE BLOOD (07/25/2024 11:36 PM WAREHOUSE OPERATIONS ASSOCIATE) Lipase 11 <60 U/L 07/26/2024 12:01 AM WAREHOUSE OPERATIONS ASSOCIATE [facility] Blood BLOOD SPECIMEN / Unknown Venipuncture / Unknown 07/25/2024 11:36 PM WAREHOUSE OPERATIONS ASSOCIATE 07/25/2024 11:43 PM WAREHOUSE OPERATIONS ASSOCIATE Keysha Stone MD LAB - CHEMISTRY OR DERABLES [facility] [address] [place] [address] from Last 3 Months Care Teams Nurse Behavioral Health Care Relationship Specialty Start Date End Date Wally Potts APRN-LEAN ENGINEER [address] [place] [address] PCP - General 07/25/24
== END 2024-10-12 16:56 | disposition home or self-care (01) ==
LOC: CHSLAB 16:57
PROVIDERS: PCP Family Medicine; Visit Provider Nurse Practitioner Family
DX: K52.9 Noninfective gastroenteritis and colitis, unspecified (principal); K92.1 Melena
CPT/HCPCS: 82653; 83993

== ENCOUNTER 2024-10-18 00:17 | Emergency (ER) | payer OTHER, SELFPAY ==
--- OUTSIDE RECORDS SUMMARY | 2024-10-18 00:20 | XMS_ITS | Clinical Summary ---
Author Organization [facility] Address [address] [place] [address] Care Team Providers Care Yarn Examiner Name Role Phone Wally Potts FINISH ROLLS OPERATOR-WARPER FIXER Primary Care Provider [phone] [phone] Source Comments [facility],non-owned Affiliates and Associated Physician Practices is amultiple site organization consisting of ambulatory clinics and hospital sitesin [place], [place], [place] and [place]. This disclosure is being madepursuant to the Care Everywhere program and may not contain all information available regarding this patient. Last updated 18.[facility] Allergies No known active allergies Medications [...] Department Care Team Description 07/25/2024 10:58 PM METROLOGY ENGINEER - 07/26/2024 4:02 AM METROLOGY ENGINEER Emergency ER at [address] [address] Keysha Stone MD Nausea and vomiting, unspecified [...] Comments Blood Pressure 144/87 07/26/2024 4:00 AM METROLOGY ENGINEER Pulse 53 07/26/2024 4:00 AM METROLOGY ENGINEER Temperature 36.7 C (98 F) 07/26/2024 4:00 AM METROLOGY ENGINEER Respiratory Rate 13 07/26/2024 4:00 AM METROLOGY ENGINEER Oxygen Saturation 98% 07/26/2024 4:00 AM METROLOGY ENGINEER Inhaled Oxygen Concentration - - Weight 122.5 kg (270 lb) 07/25/2024 11:00 PM METROLOGY ENGINEER Height 182.9 cm (6') 07/25/2024 11:00 PM METROLOGY ENGINEER Body Mass Index 36.62 07/25/2024 11:00 PM METROLOGY ENGINEER Plan of Treatment Health Maintenance Due Date [...] PELVIS W CONTRAST STAT 07/26/2024 2:35 AM METROLOGY ENGINEER Nausea and vomiting, unspecified vomiting type Abdominal pain, generalized PT-INR STAT 07/25/2024 11:50 PM METROLOGY ENGINEER SARS-COV-2 (COVID-19) FLU A/B RSV PCR RAPID STAT 07/25/2024 11:40 PM METROLOGY ENGINEER XR CHEST 1VW PORTABLE STAT 07/25/2024 11:39 PM METROLOGY ENGINEER Nausea and vomiting, unspecified vomiting type MAGNESIUM BLOOD STAT 07/25/2024 11:36 PM METROLOGY ENGINEER LIPASE BLOOD STAT 07/25/2024 11:36 PM METROLOGY ENGINEER COMPREHENSIVE METABOLIC PANEL STAT 07/25/2024 11:36 PM METROLOGY ENGINEER CBC W AUTO DIFFERENTIAL STAT 07/25/2024 11:36 PM METROLOGY ENGINEER from Last 3 Months Results * CT ABDOMEN PELVIS W CONTRAST (07/26/2024 2:35 AM METROLOGY ENGINEER) Anatomical Region Laterality Modality Abdomen, Pelvis Computed Tomogra phy 07/26/2024 7:17 AM METROLOGY ENGINEER Impressions 07/26/2024 7:30 AM METROLOGY ENGINEER IMPRESSION: UNREMARKABLE EXAMINATION. > Interpreting Provider: Mindy Cary MD on 07/26/2024 7:30 AM Narrative 07/26/2024 7:[address] ABDOMEN WITH CONTRAST CT PELVIS WITH CONTRAST CLINICAL INDICATION: Severe acute abdominal pain with nausea and vomiting. COMPARISON: None available TECHNIQUE: Preliminary interpretation was provided by [facility]. Axial CT images from the lung bases through the pubic symphysis were obtained following 100 cc Isovue-370 intravenous contrast administration. Oral contrast was not administered. Coronal and sagittal multiplanar reformats were created. All CT scans at [facility] are performed using dose optimization techniques [...] reformats were created. All CT scans at [facility] are performed using dose optimization techniques [...] CT ORDERABLES * PT-INR (07/25/2024 11:50 PM METROLOGY ENGINEER) Pathologist [facility] PT 13.5 12.1 - 14.8 sec 07/26/2024 12:31 AM METROLOGY ENGINEER [facility] INR 1.0 0.9 - 1.1 07/26/2024 12:31 AM METROLOGY ENGINEER [facility] Blood BLOOD SPECIMEN / Unknown Venipuncture / Unknown 07/25/2024 11:50 PM METROLOGY ENGINEER 07/26/2024 12:16 AM METROLOGY ENGINEER Narrative [facility] - 07/26/2024 12:31 AM METROLOGY ENGINEER Conventional Warfarin Anticoagulant Therapy: INR Reference Range: 2.0-3.0 Intensive Warfarin Anticoagulant Therapy: INR Reference Range: 2.5-3.5 Keysha Stone MD LAB - COAGULATION ORDERABLES Performing Organization Address City/State/[facility] Co de Phone Number [facility] [address] [place] [address] * SARS-COV-2 (COVID-19) FLU A/B RSV PCR RAPID (07/25/2024 11:40 PM METROLOGY ENGINEER) Pathologist [facility] COVID-19 PCR Not detected Not detected 07/26/19 12:25 AM METROLOGY ENGINEER [facility] Influenza A PCR Not detected Not detected 07/26/2024 12:25 AM METROLOGY ENGINEER [facility] Influenza B PCR Not detected Not detected 07/26/2024 12:25 AM [facility] RSV PCR Not detected Not detected 07/26/2024 12:25 AM METROLOGY ENGINEER [facility] Microbiology SPECIMEN FROM NASOPHARYNGEAL STRUCTURE / Unknown Collection / Unknown 07/25/2024 11:40 PM METROLOGY ENGINEER 07/25/2024 11:48 PM METROLOGY ENGINEER Narrative [facility] - 07/26/2024 12:25 AM METROLOGY ENGINEER This nucleic acid amplification assay has been [...] assay are available upon request. Idalia Sharma APRN-WARPER FIXER LAB - MICROBIOLO GY ORDERABLES Performing Organization Address City/State/[facility] Co de Phone Number [facility] [address] [place] [phone] * XR CHEST 1VW PORTABLE (07/25/2024 11:39 PM METROLOGY ENGINEER) Anatomical Region Laterality Modality Chest Computed Radiogr aphy 07/26/2024 8:28 AM METROLOGY ENGINEER Impressions 07/26/2024 8:28 AM METROLOGY ENGINEER IMPRESSION: No acute disease. > Interpreting Provider: Jack Anderson MD on 07/26/2024 8:28 AM Narrative 07/26/2024 8:28 AM METROLOGY ENGINEER Portable Chest AP History: Bloody emesis.. FINDINGS: [...] CBC W AUTO DIFFERENTIAL (07/25/2024 11:36 PM METROLOGY ENGINEER) WBC 14.9(H) 4.0 - 10.7 x10E9/L 07/25/2024 11:48 PM [facility] RBC Count 5.63 4.30 - 5.80 x10E12/L 07/25/2024 11:48 PM [facility] Hemoglobin 16.7 13.3 - 17.5 g/dL 07/25/2024 11:48 PM [facility] Hematocrit 47.3 38.7 - 51.1 % 07/25/2024 11:48 PM [facility] MCV 84.0 80.0 - 98.0 fL 07/25/2024 11:48 PM [facility] MCH 29.7 26.7 - 33.6 pg 07/25/2024 11:48 PM [facility] MCHC 35.3 31.7 - 36.3 g/dL 07/25/2024 11:48 PM [facility] RDW-CV 11.8 11.3 - 14.8 % 07/25/2024 11:48 PM [facility] Platelet Count 329 150 - 420 x10E9/L 07/25/2024 11:48 PM [facility] MPV 8.8 7.8 - 11.4 fL 07/25/2024 11:48 PM [facility] Neutrophil % 73.4 41.0 - 74.0 % 07/25/2024 11:48 PM [facility] Lymphocyte % 15.4(L) 17.0 - 47.0 % 07/25/2024 11:48 PM [facility] Monocyte % 10.0 3.0 - 11.0 % 07/25/2024 11:48 PM [facility] Eosinophil % 0.4 0.0 - 7.0 % 07/25/2024 11:48 PM [facility] Basophil % 0.5 0.0 - 1.6 % 07/25/2024 11:48 PM [facility] Immature Granulocytes % 0.3 0.0 - 1.0 % 07/25/2024 11:48 PM [facility] Neutrophil Absolute 10.90(H) 1.60 - 7.50 x10E9/L 07/25/2024 11:48 PM [facility] Lymphocyte Absolute 2.29 1.00 - 4.40 x10E9/L 07/25/2024 11:48 PM [facility] Monocyte Absolute 1.48(H) 0.15 - 1.00 x10E9/L 07/25/2024 11:48 PM [facility] Eosinophil Absolute 0.06 0.00 - 0.60 x10E9/L 07/25/2024 11:48 PM [facility] Basophil Absolute 0.07 0.00 - 0.13 x10E9/L 07/25/2024 11:48 PM [facility] Blood BLOOD SPECIMEN / Unknown Venipuncture / Unknown 07/25/2024 11:36 PM METROLOGY ENGINEER 07/25/2024 11:43 PM [facility] Keysha Stone MD LAB - HEMATOLOGY O RDERABLES [facility] [address] [place] [address] * (ABNORMAL) COMPREHENSIVE METABOLIC PANEL (07/25/2024 11:36 PM METROLOGY ENGINEER) Glucose 122(H) 70 - 99 mg/dL 07/26/2024 12:01 AM [facility] Sodium 141 136 - 145 mmol/L 07/26/2024 12:01 AM [facility] Potassium 3.6 3.5 - 5.1 mmol/L 07/26/2024 12:01 AM [facility] Chloride 106 98 - 107 mmol/L 07/26/2024 12:01 AM [facility] CO2 20(L) 22 - 29 mmol/L 07/26/2024 12:01 AM [facility] Calcium 10.2 8.4 - 10.4 mg/dL 07/26/2024 12:01 AM [facility] Anion Gap 15 6 - 16 mmol/L 07/26/2024 12:01 AM [facility] BUN 8 5.3 - 18.7 mg/dL 07/26/2024 12:01 AM [facility] Creatinine 0.93 0.72 - 1.25 mg/dL 07/26/2024 12:01 AM [facility] Alkaline Phosphatase 60 40 - 150 U/L 07/26/2024 12:01 AM [facility] ALT 46 0 - 55 U/L 07/26/2024 12:01 AM [facility] AST 27 5 - 34 U/L 07/26/2024 12:01 AM [facility] Protein Total 8.0 6.4 - 8.3 gm/dL 07/26/2024 12:01 AM [facility] Albumin 5.1(H) 3.4 - 5.0 gm/dL 07/26/2024 12:01 AM [facility] Bilirubin Total 1.7(H) 0.2 - 1.2 mg/dL 07/26/2024 12:01 AM [facility] eGFR by CKD-EPI >90 >=90 mL/min/1.7 3 m2 07/26/2024 12:01 AM [facility] Blood BLOOD SPECIMEN / Unknown Venipuncture / Unknown 07/25/2024 11:36 PM METROLOGY ENGINEER 07/25/2024 11:43 PM METROLOGY ENGINEER Keysha Stone MD LAB - CHEMISTRY OR DERABLES Performing Organization Address [facility] de Phone Number [facility] [id number] [place] [id number] * MAGNESIUM BLOOD (07/25/2024 11:36 PM METROLOGY ENGINEER) Magnesium 2.1 1.6 - 2.6 mg/dL 07/26/2024 12:01 AM [facility] Blood BLOOD SPECIMEN / Unknown Venipuncture / Unknown 07/25/2024 11:36 PM METROLOGY ENGINEER 07/25/2024 11:43 PM METROLOGY ENGINEER Keysha Stone MD LAB - CHEMISTRY OR DERABLES Performing Organization Address [facility] Co de Phone Number [facility] [address] [place] [address] * LIPASE BLOOD (07/25/2024 11:36 PM METROLOGY ENGINEER) Lipase 11 <60 U/L 07/26/2024 12:01 AM METROLOGY ENGINEER [facility] Blood BLOOD SPECIMEN / Unknown Venipuncture / Unknown 07/25/2024 11:36 PM METROLOGY ENGINEER 07/25/2024 11:43 PM METROLOGY ENGINEER Keysha Stone MD LAB - CHEMISTRY OR DERABLES [facility] [address] [place] [address] from Last 3 Months Care Teams Yarn Examiner Relationship Specialty Start Date End Date Wally Potts APRN-WARPER FIXER [address] [place] [address] PCP - General 07/25/24
[2024-10-18 00:30] VITALS: BP 183/101; PULSE 63; RESP 18; TEMP 36.3; O2SAT 98
--- OUTSIDE RECORDS SUMMARY | 2024-10-18 02:49 | XMS_ITS | Clinical Summary ---
Author Organization [facility] Address [address] [place] [address] Care Team Providers Care Bilingual Executive Assistant Name Role Phone Wally Potts RESOURCE CONSERVATION SPECIALIST-TOPOGRAPHICAL SURVEYOR Primary Care Provider +1 [phone] Source Comments [facility],non-owned Affiliates and Associated Physician Practices is amultiple site organization consisting of ambulatory clinics and hospital sitesin [place], [place], [place] and [place]. This disclosure is being madepursuant to the Care Everywhere program and may not contain all information available regarding this patient. Last updated 18.[facility] Allergies No known active allergies Medications * [...] Department Care Team Description 07/25/2024 10:58 PM CUTTER HELPER - 07/26/2024 4:02 AM CUTTER HELPER Emergency ER at [address] [address] Keysha Stone MD Nausea and vomiting, unspecified [...] Comments Blood Pressure 144/87 07/26/2024 4:00 AM CUTTER HELPER Pulse 53 07/26/2024 4:00 AM CUTTER HELPER Temperature 36.7 C (98 F) 07/26/2024 4:00 AM CUTTER HELPER Respiratory Rate 13 07/26/2024 4:00 AM CUTTER HELPER Oxygen Saturation 98% 07/26/2024 4:00 AM CUTTER HELPER Inhaled Oxygen Concentration - - Weight 122.5 kg (270 lb) 07/25/2024 11:00 PM CUTTER HELPER Height 182.9 cm (6') 07/25/2024 11:00 PM CUTTER HELPER Body Mass Index 36.62 07/25/2024 11:00 PM CUTTER HELPER Plan of Treatment Health Maintenance Due Date [...] PELVIS W CONTRAST STAT 07/26/2024 2:35 AM CUTTER HELPER Nausea and vomiting, unspecified vomiting type Abdominal pain, generalized PT-INR STAT 07/25/2024 11:50 PM CUTTER HELPER SARS-COV-2 (COVID-19) FLU A/B RSV PCR RAPID STAT 07/25/2024 11:40 PM CUTTER HELPER XR CHEST 1VW PORTABLE STAT 07/25/2024 11:39 PM CUTTER HELPER Nausea and vomiting, unspecified vomiting type MAGNESIUM BLOOD STAT 07/25/2024 11:36 PM CUTTER HELPER LIPASE BLOOD STAT 07/25/2024 11:36 PM CUTTER HELPER COMPREHENSIVE METABOLIC PANEL STAT 07/25/2024 11:36 PM CUTTER HELPER CBC W AUTO DIFFERENTIAL STAT 07/25/2024 11:36 PM CUTTER HELPER from Last 3 Months Results * CT ABDOMEN PELVIS W CONTRAST (07/26/2024 2:35 AM CUTTER HELPER) Anatomical Region Laterality Modality Abdomen, Pelvis Computed Tomogra phy 07/26/2024 7:17 AM CUTTER HELPER Impressions 07/26/2024 7:30 AM CUTTER HELPER IMPRESSION: UNREMARKABLE EXAMINATION. > Interpreting Provider: Mindy Cary MD on 07/26/2024 7:30 AM Narrative 07/26/2024 7:[address] ABDOMEN WITH CONTRAST CT PELVIS WITH CONTRAST CLINICAL INDICATION: Severe acute abdominal pain with nausea and vomiting. COMPARISON: None available TECHNIQUE: Preliminary interpretation was provided by [facility]. Axial CT images from the lung bases through the pubic symphysis were obtained following 100 cc Isovue-370 intravenous contrast administration. Oral contrast was not administered. Coronal and sagittal multiplanar reformats were created. All CT scans at [facility] are performed using dose optimization techniques as [...] reformats were created. All CT scans at [facility] are performed using dose optimization techniques as [...] CT ORDERABLES * PT-INR (07/25/2024 11:50 PM CUTTER HELPER) Pathologist [facility] PT 13.5 12.1 - 14.8 sec 07/26/2024 12:31 AM CUTTER HELPER [facility] INR 1.0 0.9 - 1.1 07/26/2024 12:31 AM CUTTER HELPER [facility] Blood BLOOD SPECIMEN / Unknown Venipuncture / Unknown 07/25/2024 11:50 PM CUTTER HELPER 07/26/2024 12:16 AM CUTTER HELPER Narrative [facility] - 07/26/2024 12:31 AM CUTTER HELPER Conventional Warfarin Anticoagulant Therapy: INR Reference Range: 2.0-3.0 Intensive Warfarin Anticoagulant Therapy: INR Reference Range: 2.5-3.5 Keysha Stone MD LAB - COAGULATION ORDERABLES Performing Organization Address City/State/[facility] Co de Phone Number [facility] [address] [place] [address] * SARS-COV-2 (COVID-19) FLU A/B RSV PCR RAPID (07/25/2024 11:40 PM CUTTER HELPER) Pathologist [facility] COVID-19 PCR Not detected Not detected 07/26/19 12:25 AM CUTTER HELPER [facility] Influenza A PCR Not detected Not detected 07/26/2024 12:25 AM CUTTER HELPER [facility] Influenza B PCR Not detected Not detected 07/26/2024 12:25 AM [facility] RSV PCR Not detected Not detected 07/26/2024 12:25 AM CUTTER HELPER [facility] Microbiology SPECIMEN FROM NASOPHARYNGEAL STRUCTURE / Unknown Collection / Unknown 07/25/2024 11:40 PM CUTTER HELPER 07/25/2024 11:48 PM CUTTER HELPER Narrative [facility] - 07/26/2024 12:25 AM CUTTER HELPER This nucleic acid amplification assay has been [...] assay are available upon request. Idalia Sharma APRN-TOPOGRAPHICAL SURVEYOR LAB - MICROBIOLO GY ORDERABLES Performing Organization Address City/State/[facility] Co de Phone Number [facility] [address] [place] [phone] * XR CHEST 1VW PORTABLE (07/25/2024 11:39 PM CUTTER HELPER) Anatomical Region Laterality Modality Chest Computed Radiogr aphy 07/26/2024 8:28 AM CUTTER HELPER Impressions 07/26/2024 8:28 AM CUTTER HELPER IMPRESSION: No acute disease. > Interpreting Provider: Jack Anderson MD on 07/26/2024 8:28 AM Narrative 07/26/2024 8:28 AM CUTTER HELPER Portable Chest AP History: Bloody emesis.. FINDINGS: [...] CBC W AUTO DIFFERENTIAL (07/25/2024 11:36 PM CUTTER HELPER) WBC 14.9(H) 4.0 - 10.7 x10E9/L 07/25/2024 11:48 PM [facility] RBC Count 5.63 4.30 - 5.80 x10E12/L 07/25/2024 11:48 PM [facility] Hemoglobin 16.7 13.3 - 17.5 g/dL 07/25/2024 11:48 PM [facility] Hematocrit 47.3 38.7 - 51.1 % 07/25/2024 11:48 PM [facility] MCV 84.0 80.0 - 98.0 fL 07/25/2024 11:48 PM [facility] MCH 29.7 26.7 - 33.6 pg 07/25/2024 11:48 PM [facility] MCHC 35.3 31.7 - 36.3 g/dL 07/25/2024 11:48 PM [facility] RDW-CV 11.8 11.3 - 14.8 % 07/25/2024 11:48 PM [facility] Platelet Count 329 150 - 420 x10E9/L 07/25/2024 11:48 PM [facility] MPV 8.8 7.8 - 11.4 fL 07/25/2024 11:48 PM [facility] Neutrophil % 73.4 41.0 - 74.0 % 07/25/2024 11:48 PM [facility] Lymphocyte % 15.4(L) 17.0 - 47.0 % 07/25/2024 11:48 PM [facility] Monocyte % 10.0 3.0 - 11.0 % 07/25/2024 11:48 PM [facility] Eosinophil % 0.4 0.0 - 7.0 % 07/25/2024 11:48 PM [facility] Basophil % 0.5 0.0 - 1.6 % 07/25/2024 11:48 PM [facility] Immature Granulocytes % 0.3 0.0 - 1.0 % 07/25/2024 11:48 PM [facility] Neutrophil Absolute 10.90(H) 1.60 - 7.50 x10E9/L 07/25/2024 11:48 PM [facility] Lymphocyte Absolute 2.29 1.00 - 4.40 x10E9/L 07/25/2024 11:48 PM [facility] Monocyte Absolute 1.48(H) 0.15 - 1.00 x10E9/L 07/25/2024 11:48 PM [facility] Eosinophil Absolute 0.06 0.00 - 0.60 x10E9/L 07/25/2024 11:48 PM [facility] Basophil Absolute 0.07 0.00 - 0.13 x10E9/L 07/25/2024 11:48 PM [facility] Blood BLOOD SPECIMEN / Unknown Venipuncture / Unknown 07/25/2024 11:36 PM CUTTER HELPER 07/25/2024 11:43 PM [facility] Keysha Stone MD LAB - HEMATOLOGY O RDERABLES [facility] [address] [place] [address] * (ABNORMAL) COMPREHENSIVE METABOLIC PANEL (07/25/2024 11:36 PM CUTTER HELPER) Glucose 122(H) 70 - 99 mg/dL 07/26/2024 12:01 AM [facility] Sodium 141 136 - 145 mmol/L 07/26/2024 12:01 AM [facility] Potassium 3.6 3.5 - 5.1 mmol/L 07/26/2024 12:01 AM [facility] Chloride 106 98 - 107 mmol/L 07/26/2024 12:01 AM [facility] CO2 20(L) 22 - 29 mmol/L 07/26/2024 12:01 AM [facility] Calcium 10.2 8.4 - 10.4 mg/dL 07/26/2024 12:01 AM [facility] Anion Gap 15 6 - 16 mmol/L 07/26/2024 12:01 AM [facility] BUN 8 5.3 - 18.7 mg/dL 07/26/2024 12:01 AM [facility] Creatinine 0.93 0.72 - 1.25 mg/dL 07/26/2024 12:01 AM [facility] Alkaline Phosphatase 60 40 - 150 U/L 07/26/2024 12:01 AM [facility] ALT 46 0 - 55 U/L 07/26/2024 12:01 AM [facility] AST 27 5 - 34 U/L 07/26/2024 12:01 AM [facility] Protein Total 8.0 6.4 - 8.3 gm/dL 07/26/2024 12:01 AM [facility] Albumin 5.1(H) 3.4 - 5.0 gm/dL 07/26/2024 12:01 AM [facility] Bilirubin Total 1.7(H) 0.2 - 1.2 mg/dL 07/26/2024 12:01 AM [facility] eGFR by CKD-EPI >90 >=90 mL/min/1.7 3 m2 07/26/2024 12:01 AM [facility] Blood BLOOD SPECIMEN / Unknown Venipuncture / Unknown 07/25/2024 11:36 PM CUTTER HELPER 07/25/2024 11:43 PM CUTTER HELPER Keysha Stone MD LAB - CHEMISTRY OR DERABLES Performing Organization Address [facility] de Phone Number [facility] [id number] [place] [address] * MAGNESIUM BLOOD (07/25/2024 11:36 PM CUTTER HELPER) Magnesium 2.1 1.6 - 2.6 mg/dL 07/26/2024 12:01 AM [facility] Blood BLOOD SPECIMEN / Unknown Venipuncture / Unknown 07/25/2024 11:36 PM CUTTER HELPER 07/25/2024 11:43 PM CUTTER HELPER Keysha Stone MD LAB - CHEMISTRY OR DERABLES Performing Organization Address [facility] Co de Phone Number [facility] [address] [place] [address] * LIPASE BLOOD (07/25/2024 11:36 PM CUTTER HELPER) Lipase 11 <60 U/L 07/26/2024 12:01 AM CUTTER HELPER [facility] Blood BLOOD SPECIMEN / Unknown Venipuncture / Unknown 07/25/2024 11:36 PM CUTTER HELPER 07/25/2024 11:43 PM CUTTER HELPER Keysha Stone MD LAB - CHEMISTRY OR DERABLES [facility] [address] [place] [address] from Last 3 Months Care Teams Bilingual Executive Assistant Relationship Specialty Start Date End Date Wally Potts APRN-TOPOGRAPHICAL SURVEYOR [address] [place] [address] PCP - General 07/25/24
--- NOTE | 2024-10-18 02:51 | PC.NURSE ---
edp to bedside - verbalized that he will do a nerve block on pt
--- NOTE | 2024-10-18 02:56 | ED.GENADULT ---
HPI - General Adult General Chief complaint: Dental/Oral Stated complaint: L lower tooth pain Time Seen by Provider: 10/18/24 02:32 History of Present Illness HPI narrative: 24-year-old male presenting with dental pain from a large renu in his bottom left molar. He has follow-up with a dentist tomorrow Related Data Home Medications ?Medication ?Instructions ?Recorded ?Confirmed ?Last Taken ?Type alprazolam 0.25 mg tablet (Xanax) 0.25 mg PO DAILY 10/12/24 10/12/24 Unknown History amlodipine 1 mg/mL oral solution 2.5 mg PO DAILY 10/12/24 10/12/24 Unknown History amoxicillin 500 mg capsule 500 mg PO Q8H 10/12/24 10/12/24 Unknown History pantoprazole 40 mg tablet,delayed 40 mg PO DAILY 10/12/24 10/12/24 Unknown History release sucralfate 1 gram tablet 1 g PO Q6H 10/12/24 10/12/24 Unknown History Allergies Allergy/AdvReac Type Severity Reaction Status Date / Time Venlafaxine AdvReac Intermediate Sweating Uncoded 10/18/24 00:32 [facility] Family History Family History Mother Depression Anxiety Scoliosis Chronic back pain Father Diabetes mellitus Chronic back pain Sibling Scoliosis Depression Anxiety Social History Social History Years smoked: 6 Smoking status: Current every day smoker Tobacco type: e-cigarettes/vaping Alcohol intake: never Alcohol use details: occasional Substance use: current Substance use type: marijuana Last use: Couple days ago Living arrangements: with family Spiritual care concerns: No Exam Narrative: APPEARANCE: No apparent distress. Head: Large cavity in the possible more EYES: EOMI, NOSE: Atraumatic NECK: Trachea midline RESPIRATORY: No increased rate of breathing CARDIOVASCULAR: RRR, ABDOMINAL: Non-distended MUSCULOSKELETAl: No obvious deformities NEURO: Alert. Moving 4/4 extremities SKIN:: Warm, dry. Normal color PSYCHIATRIC: Normal affect Course Vital Signs Vital signs: Vital Signs Temperature 97.4 F L 10/18/24 00:30 Pulse Rate 63 10/18/24 00:30 Respiratory Rate 18 10/18/24 00:30 Blood Pressure 183/101 H 10/18/24 00:30 Pulse Oximetry 98 10/18/24 00:30 Oxygen Delivery Room Air 10/18/24 00:30 Temperature 97.4 F L 10/18/24 00:30 Pulse Rate 63 10/18/24 00:30 Respiratory Rate 18 10/18/24 00:30 Blood Pressure 183/101 H 10/18/24 00:30 Pulse Oximetry 98 10/18/24 00:30 Oxygen Delivery Room Air 10/18/24 00:30 Procedures Nerve Block Nerve Block 1: Nerve block date: 10/18/24 Local Anesthetic: bupivacaine 0.25% Amount of anesthesia used (mL): 2 Side: left Intraoral Nerve Block: inferior alveolar Procedure Successful: Yes Patient Tolerated Procedure: well Complications: none Medical Decision Making Vital Signs Vital Signs: Vital Signs Temperature 97.4 F L 10/18/24 00:30 Pulse Rate 63 10/18/24 00:30 Respiratory Rate 18 10/18/24 00:30 Blood Pressure 183/101 H 10/18/24 00:30 Pulse Oximetry 98 10/18/24 00:30 Oxygen Delivery Room Air 10/18/24 00:30 Temperature 97.4 F L 10/18/24 00:30 Pulse Rate 63 10/18/24 00:30 Respiratory Rate 18 10/18/24 00:30 Blood Pressure 183/101 H 10/18/24 00:30 Pulse Oximetry 98 10/18/24 00:30 Oxygen Delivery Room Air 10/18/24 00:30 Discharge Plan Discharge Clinical Impression: Pain, dental Patient Disposition: Home, Self-Care Condition: Stable Instructions: Antibiotic Form, Toothache (ED) Additional Instructions: Please follow-up with your dentist tomorrow. Return if you develop severe pain, difficulty swallowing or breathing. Patient Language: Kyrgyz Prescriptions: No Action dicyclomine 10 mg capsule 10 mg PO QID Qty: 120 3RF Patient Comments: pt states doesnt take ibuprofen 600 mg tablet 600 mg PO TID PRN (Reason: pain) Qty: 20 0RF sucralfate 1 gram tablet 1 g PO Q6H pantoprazole 40 mg tablet,delayed release (DR/EC) 40 mg PO DAILY amlodipine 1 mg/mL solution 2.5 mg PO DAILY amoxicillin 500 mg capsule 500 mg PO Q8H alprazolam [Xanax] 0.25 mg tablet 0.25 mg PO DAILY Follow-up/Referrals: Yash Stark DO [Primary Care Provider] - Stand Alone Forms: Work/School Release IP
[2024-10-18] MEDS: BUPivacaine HCL 0.25% PF 30 ML VIAL INFILTRATE (03:09)
[2024-10-18 03:10] VITALS: BP 137/76; PULSE 76; RESP 16; TEMP 36.5; O2SAT 98
== END 2024-10-18 03:11 | disposition home or self-care (01) ==
PROVIDERS: Emergency Provider Emergency Medicine; PCP Family Medicine
DX: K02.9 Dental caries, unspecified (principal); F17.290 Nicotine dependence, other tobacco product, uncomplicated
CPT/HCPCS: 64400; 64999; 99282

== ENCOUNTER 2024-10-21 07:36 | Emergency (ER) | payer OTHER, SELFPAY ==
[2024-10-21 07:36] VITALS: BP 130/88; PULSE 80; RESP 18; TEMP 36.8; O2SAT 98
--- OUTSIDE RECORDS SUMMARY | 2024-10-21 07:41 | XMS_ITS | Clinical Summary ---
Author Organization [facility] Address [address] [place] [address] Care Team Providers Care Food And Beverage Attendant Name Role Phone Wally Potts PERISHABLE FREIGHT INSPECTOR-[employer]IV[employer] WORKER [employer]IST[employer] LIVING Primary Care Provider [phone] Source Comments [facility],non-owned Affiliates and Associated Physician Practices is amultiple site organization consisting of ambulatory clinics and hospital sitesin [place], [place], [place] and [place]. This disclosure is being madepursuant to the Care Everywhere program and may not contain all information available regarding this patient. Last updated 18.[facility] Allergies No known active allergies Medications * [...] Department Care Team Description 07/25/2024 10:58 PM BIOINFORMATICS SOFTWARE ENGINEER - 07/26/2024 4:02 AM BIOINFORMATICS SOFTWARE ENGINEER Emergency ER at [address] [address] Keysha Stone MD Nausea and vomiting, unspecified [...] Comments Blood Pressure 144/87 07/26/2024 4:00 AM BIOINFORMATICS SOFTWARE ENGINEER Pulse 53 07/26/2024 4:00 AM BIOINFORMATICS SOFTWARE ENGINEER Temperature 36.7 C (98 F) 07/26/2024 4:00 AM BIOINFORMATICS SOFTWARE ENGINEER Respiratory Rate 13 07/26/2024 4:00 AM BIOINFORMATICS SOFTWARE ENGINEER Oxygen Saturation 98% 07/26/2024 4:00 AM BIOINFORMATICS SOFTWARE ENGINEER Inhaled Oxygen Concentration - - Weight 122.5 kg (270 lb) 07/25/2024 11:00 PM BIOINFORMATICS SOFTWARE ENGINEER Height 182.9 cm (6') 07/25/2024 11:00 PM BIOINFORMATICS SOFTWARE ENGINEER Body Mass Index 36.62 07/25/2024 11:00 PM BIOINFORMATICS SOFTWARE ENGINEER Plan of Treatment Health Maintenance Due [...] PELVIS W CONTRAST STAT 07/26/2024 2:35 AM BIOINFORMATICS SOFTWARE ENGINEER Nausea and vomiting, unspecified vomiting type Abdominal pain, generalized PT-INR STAT 07/25/2024 11:50 PM BIOINFORMATICS SOFTWARE ENGINEER SARS-COV-2 (COVID-19) FLU A/B RSV PCR RAPID STAT 07/25/2024 11:40 PM BIOINFORMATICS SOFTWARE ENGINEER XR CHEST 1VW PORTABLE STAT 07/25/2024 11:39 PM BIOINFORMATICS SOFTWARE ENGINEER Nausea and vomiting, unspecified vomiting type MAGNESIUM BLOOD STAT 07/25/2024 11:36 PM BIOINFORMATICS SOFTWARE ENGINEER LIPASE BLOOD STAT 07/25/2024 11:36 PM BIOINFORMATICS SOFTWARE ENGINEER COMPREHENSIVE METABOLIC PANEL STAT 07/25/2024 11:36 PM BIOINFORMATICS SOFTWARE ENGINEER CBC W AUTO DIFFERENTIAL STAT 07/25/2024 11:36 PM BIOINFORMATICS SOFTWARE ENGINEER from Last 3 Months Results * CT ABDOMEN PELVIS W CONTRAST (07/26/2024 2:35 AM BIOINFORMATICS SOFTWARE ENGINEER) Anatomical Region Laterality Modality Abdomen, Pelvis Computed Tomogra phy 07/26/2024 7:17 AM BIOINFORMATICS SOFTWARE ENGINEER Impressions 07/26/2024 7:30 AM BIOINFORMATICS SOFTWARE ENGINEER IMPRESSION: UNREMARKABLE EXAMINATION. > Interpreting Provider: Mindy Cary MD on 07/26/2024 7:30 AM Narrative 07/26/2024 7:30 [address] BIOINFORMATICS SOFTWARE ENGINEER CT ABDOMEN WITH CONTRAST CT PELVIS WITH CONTRAST CLINICAL INDICATION: Severe acute abdominal pain with nausea and vomiting. COMPARISON: None available TECHNIQUE: Preliminary interpretation was provided by [facility]. Axial CT images from the lung bases through the pubic symphysis were obtained following 100 cc Isovue-370 intravenous contrast administration. Oral contrast was not administered. Coronal and sagittal multiplanar reformats were created. All CT scans at [facility] are performed using dose optimization techniques [...] reformats were created. All CT scans at [facility] are performed using dose optimization techniques [...] CT ORDERABLES * PT-INR (07/25/2024 11:50 PM BIOINFORMATICS SOFTWARE ENGINEER) Pathologist [facility] PT 13.5 12.1 - 14.8 sec 07/26/2024 12:31 AM BIOINFORMATICS SOFTWARE ENGINEER [facility] INR 1.0 0.9 - 1.1 07/26/2024 12:31 AM BIOINFORMATICS SOFTWARE ENGINEER [facility] Blood BLOOD SPECIMEN / Unknown Venipuncture / Unknown 07/25/2024 11:50 PM BIOINFORMATICS SOFTWARE ENGINEER 07/26/2024 12:16 AM BIOINFORMATICS SOFTWARE ENGINEER Narrative [facility] - 07/26/2024 12:31 AM BIOINFORMATICS SOFTWARE ENGINEER Conventional Warfarin Anticoagulant Therapy: INR Reference Range: 2.0-3.0 Intensive Warfarin Anticoagulant Therapy: INR Reference Range: 2.5-3.5 Keysha Stone MD LAB - COAGULATION ORDERABLES Performing Organization Address City/State/[facility] Co de Phone Number [facility] [address] [place] [address] * SARS-COV-2 (COVID-19) FLU A/B RSV PCR RAPID (07/25/2024 11:40 PM BIOINFORMATICS SOFTWARE ENGINEER) Pathologist [facility] COVID-19 PCR Not detected Not detected 07/26/19 12:25 AM BIOINFORMATICS SOFTWARE ENGINEER [facility] Influenza A PCR Not detected Not detected 07/26/2024 12:25 AM BIOINFORMATICS SOFTWARE ENGINEER [facility] Influenza B PCR Not detected Not detected 07/26/2024 12:25 AM [facility] RSV PCR Not detected Not detected 07/26/2024 12:25 AM BIOINFORMATICS SOFTWARE ENGINEER [facility] Microbiology SPECIMEN FROM NASOPHARYNGEAL STRUCTURE / Unknown Collection / Unknown 07/25/2024 11:40 PM BIOINFORMATICS SOFTWARE ENGINEER 07/25/2024 11:48 PM BIOINFORMATICS SOFTWARE ENGINEER Narrative [facility] - 07/26/2024 12:25 AM BIOINFORMATICS SOFTWARE ENGINEER This nucleic acid amplification assay has [...] assay are available upon request. Idalia Sharma APRN-UNIVERSAL WORKER ASSISTED LIVING LAB - MICROBIOLO GY ORDERABLES Performing Organization Address City/State/[facility] Co de Phone Number [facility] [address] [place] [id number] * XR CHEST 1VW PORTABLE (07/25/2024 11:39 PM BIOINFORMATICS SOFTWARE ENGINEER) Anatomical Region Laterality Modality Chest Computed Radiogr aphy 07/26/2024 8:28 AM BIOINFORMATICS SOFTWARE ENGINEER Impressions 07/26/2024 8:28 AM BIOINFORMATICS SOFTWARE ENGINEER IMPRESSION: No acute disease. > Interpreting Provider: Jack Anderson MD on 07/26/2024 8:28 AM Narrative 07/26/2024 8:28 AM BIOINFORMATICS SOFTWARE ENGINEER Portable Chest AP History: Bloody emesis.. [...] CBC W AUTO DIFFERENTIAL (07/25/2024 11:36 PM BIOINFORMATICS SOFTWARE ENGINEER) WBC 14.9(H) 4.0 - 10.7 x10E9/L 07/25/2024 11:48 PM [facility] RBC Count 5.63 4.30 - 5.80 x10E12/L 07/25/2024 11:48 PM [facility] Hemoglobin 16.7 13.3 - 17.5 g/dL 07/25/2024 11:48 PM [facility] Hematocrit 47.3 38.7 - 51.1 % 07/25/2024 11:48 PM [facility] MCV 84.0 80.0 - 98.0 fL 07/25/2024 11:48 PM [facility] MCH 29.7 26.7 - 33.6 pg 07/25/2024 11:48 PM [facility] MCHC 35.3 31.7 - 36.3 g/dL 07/25/2024 11:48 PM [facility] RDW-CV 11.8 11.3 - 14.8 % 07/25/2024 11:48 PM [facility] Platelet Count 329 150 - 420 x10E9/L 07/25/2024 11:48 PM [facility] MPV 8.8 7.8 - 11.4 fL 07/25/2024 11:48 PM [facility] Neutrophil % 73.4 41.0 - 74.0 % 07/25/2024 11:48 PM [facility] Lymphocyte % 15.4(L) 17.0 - 47.0 % 07/25/2024 11:48 PM [facility] Monocyte % 10.0 3.0 - 11.0 % 07/25/2024 11:48 PM [facility] Eosinophil % 0.4 0.0 - 7.0 % 07/25/2024 11:48 PM [facility] Basophil % 0.5 0.0 - 1.6 % 07/25/2024 11:48 PM [facility] Immature Granulocytes % 0.3 0.0 - 1.0 % 07/25/2024 11:48 PM [facility] Neutrophil Absolute 10.90(H) 1.60 - 7.50 x10E9/L 07/25/2024 11:48 PM [facility] Lymphocyte Absolute 2.29 1.00 - 4.40 x10E9/L 07/25/2024 11:48 PM [facility] Monocyte Absolute 1.48(H) 0.15 - 1.00 x10E9/L 07/25/2024 11:48 PM [facility] Eosinophil Absolute 0.06 0.00 - 0.60 x10E9/L 07/25/2024 11:48 PM [facility] Basophil Absolute 0.07 0.00 - 0.13 x10E9/L 07/25/2024 11:48 PM [facility] Blood BLOOD SPECIMEN / Unknown Venipuncture / Unknown 07/25/2024 11:36 PM BIOINFORMATICS SOFTWARE ENGINEER 07/25/2024 11:43 PM [facility] Keysha Stone MD LAB - HEMATOLOGY O RDERABLES [facility] [address] [place] [address] * (ABNORMAL) COMPREHENSIVE METABOLIC PANEL (07/25/2024 11:36 PM BIOINFORMATICS SOFTWARE ENGINEER) Glucose 122(H) 70 - 99 mg/dL 07/26/2024 12:01 AM [facility] Sodium 141 136 - 145 mmol/L 07/26/2024 12:01 AM [facility] Potassium 3.6 3.5 - 5.1 mmol/L 07/26/2024 12:01 AM [facility] Chloride 106 98 - 107 mmol/L 07/26/2024 12:01 AM [facility] CO2 20(L) 22 - 29 mmol/L 07/26/2024 12:01 AM [facility] Calcium 10.2 8.4 - 10.4 mg/dL 07/26/2024 12:01 AM [facility] Anion Gap 15 6 - 16 mmol/L 07/26/2024 12:01 AM [facility] BUN 8 5.3 - 18.7 mg/dL 07/26/2024 12:01 AM [facility] Creatinine 0.93 0.72 - 1.25 mg/dL 07/26/2024 12:01 AM [facility] Alkaline Phosphatase 60 40 - 150 U/L 07/26/2024 12:01 AM [facility] ALT 46 0 - 55 U/L 07/26/2024 12:01 AM [facility] AST 27 5 - 34 U/L 07/26/2024 12:01 AM [facility] Protein Total 8.0 6.4 - 8.3 gm/dL 07/26/2024 12:01 AM [facility] Albumin 5.1(H) 3.4 - 5.0 gm/dL 07/26/2024 12:01 AM [facility] Bilirubin Total 1.7(H) 0.2 - 1.2 mg/dL 07/26/2024 12:01 AM [facility] eGFR by CKD-EPI >90 >=90 mL/min/1.7 3 m2 07/26/2024 12:01 AM [facility] Blood BLOOD SPECIMEN / Unknown Venipuncture / Unknown 07/25/2024 11:36 PM BIOINFORMATICS SOFTWARE ENGINEER 07/25/2024 11:43 PM BIOINFORMATICS SOFTWARE ENGINEER Keysha Stone MD LAB - CHEMISTRY OR DERABLES Performing Organization Address [facility] de Phone Number [facility] [id number] [place] [id number] * MAGNESIUM BLOOD (07/25/2024 11:36 PM BIOINFORMATICS SOFTWARE ENGINEER) Magnesium 2.1 1.6 - 2.6 mg/dL 07/26/2024 12:01 AM [facility] Blood BLOOD SPECIMEN / Unknown Venipuncture / Unknown 07/25/2024 11:36 PM BIOINFORMATICS SOFTWARE ENGINEER 07/25/2024 11:43 PM BIOINFORMATICS SOFTWARE ENGINEER Keysha Stone MD LAB - CHEMISTRY OR DERABLES Performing Organization Address [facility] Co de Phone Number [facility] [address] [place] [address] * LIPASE BLOOD (07/25/2024 11:36 PM BIOINFORMATICS SOFTWARE ENGINEER) Lipase 11 <60 U/L 07/26/2024 12:01 AM BIOINFORMATICS SOFTWARE ENGINEER [facility] Blood BLOOD SPECIMEN / Unknown Venipuncture / Unknown 07/25/2024 11:36 PM BIOINFORMATICS SOFTWARE ENGINEER 07/25/2024 11:43 PM BIOINFORMATICS SOFTWARE ENGINEER Keysha Stone MD LAB - CHEMISTRY OR DERABLES [facility] [address] [place] [address] from Last 3 Months Care Teams Food And Beverage Attendant Relationship Specialty Start Date End Date Wally Potts APRN-[employer]IVERSAL WORKER ASSISTED LIVING [address] [place] [address] PCP - General 07/25/24
[2024-10-21 08:01] VITALS: O2SAT 99
[2024-10-21 08:16] LABS: Strep Group A RT-PCR NOT DETECTED (Negative)
--- NOTE | 2024-10-21 08:19 | ED.URI ---
HPI - URI/Sore Throat General Chief Complaint: Upper Respiratory Infection Stated Complaint: fever Time Seen by Provider: 10/21/24 07:41 Source: patient Mode of arrival: ambulatory Limitations: no limitations History of Present Illness HPI Narrative: this is a 24-year-old male that recently had a tooth extraction currently on antibiotics. Patient has been having body aches with low-grade fevers, currently no fever chills no shortness of breath no audible wheezing no nausea vomiting. MD elicited complaint: fever Onset (ago): day(s) Consistency: constant Severity: mild Related Data Home Medications ?Medication ?Instructions ?Recorded ?Confirmed ?Last Taken ?Type alprazolam 0.25 mg tablet (Xanax) 0.25 mg PO DAILY 10/12/24 10/21/24 Unknown History amlodipine 1 mg/mL oral solution 2.5 mg PO DAILY 10/12/24 10/21/24 Unknown History amoxicillin 500 mg capsule 500 mg PO Q8H 10/12/24 10/21/24 Unknown History pantoprazole 40 mg tablet,delayed 40 mg PO DAILY 10/12/24 10/21/24 Unknown History release sucralfate 1 gram tablet 1 g PO Q6H 10/12/24 10/21/24 Unknown History omeprazole 20 mg capsule,delayed 20 mg PO DAILY 10/21/24 Unknown History release Allergies Allergy/AdvReac Type Severity Reaction Status Date / Time Venlafaxine AdvReac Intermediate Sweating Uncoded 10/21/24 08:05 Review of Systems Review of Systems: All systems reviewed & are unremarkable except as noted in HPI and below PMFSH Past Medical History Medical History Depression Family History Family History Mother Depression Anxiety Scoliosis Chronic back pain Father Diabetes mellitus Chronic back pain Sibling Scoliosis Depression Anxiety Social History Social History Years smoked: 6 Smoking status: Current every day smoker Tobacco type: e-cigarettes/vaping Alcohol intake: never Alcohol use details: occasional Substance use: current Substance use type: marijuana Last use: Couple days ago Living arrangements: with family Spiritual care concerns: No Exam Const: General: healthy appearing, no acute distress and alert Nutritional Appearance: well nourished Orientation/consciousness: patient oriented x3 Limitations: no limitations HENMT: Head: normal to inspection Ears: external ears normal Face and sinus: normal facial exam Eyes: Conjunctivae: conjunctivae normal Neck: Neck: normal visual inspection, no lymphadenopathy and no meningeal signs Chest: Chest palpation & inspection: normal inspection of the chest Resp: Effort & Inspection: normal respiratory effort Auscultation: clear to auscultation bilaterally Cardio: Rate: regular rate Rhythm: regular rhythm GI: GI Palp: Yes Soft to palpation Extrem: General: normal to inspection Psych: Mental Status: mental status grossly normal Course Course Emergency Course: Rapid strep negative, COVID influenza RSV formed BM with patient. Vital Signs Vital signs: Vital Signs Temperature 36.8 C 10/21/24 07:36 Pulse Rate 80 10/21/24 07:36 Respiratory Rate 18 10/21/24 07:36 Blood Pressure 130/88 10/21/24 07:36 Pulse Oximetry 98 10/21/24 07:36 Oxygen Delivery Room Air 10/21/24 07:36 Temperature 36.8 C 10/21/24 07:36 Pulse Rate 80 10/21/24 07:36 Respiratory Rate 18 10/21/24 07:36 Blood Pressure 130/88 10/21/24 07:36 Pulse Oximetry 99 10/21/24 08:01 Oxygen Delivery Room Air 10/21/24 08:01 MDM - URI/Sore Throat Lab Data Labs: Lab Results 10/21/24 Range/Units 07:44 Influenza A (RT-PCR) Pending Influenza B (RT-PCR) Pending RSV (RT-PCR) Pending SARS-CoV-2 RNA (RT-PCR) Pending Group A Strep (PCR) Not detected (Negative) Critical Care Time Critical Care Time Critical Care Time: No Discharge Plan Discharge Patient Language: Citizen Of [place] Prescriptions: No Action omeprazole 20 mg capsule,delayed release(DR/EC) 20 mg PO DAILY dicyclomine 10 mg capsule 10 mg PO QID Qty: 120 3RF Patient Comments: pt states doesnt take ibuprofen 600 mg tablet 600 mg PO TID PRN (Reason: pain) Qty: 20 0RF sucralfate 1 gram tablet 1 g PO Q6H pantoprazole 40 mg tablet,delayed release (DR/EC) 40 mg PO DAILY amlodipine 1 mg/mL solution 2.5 mg PO DAILY amoxicillin 500 mg capsule 500 mg PO Q8H alprazolam [Xanax] 0.25 mg tablet 0.25 mg PO DAILY Follow-up/Referrals: Wally Potts APRN [Primary Care Provider] -
--- OUTSIDE RECORDS SUMMARY | 2024-10-21 08:22 | XMS_ITS | Clinical Summary ---
Author Organization [facility] Address [address] [place] [address] Care Team Providers Care Crayon Grader Name Role Phone Wally Potts GROUP DIRECTOR EXPERIENCE-DRESS DRAPER Primary Care Provider [phone] Source Comments [facility],non-owned Affiliates and Associated Physician Practices is amultiple site organization consisting of ambulatory clinics and hospital sitesin [place], [place], [place] and [place]. This disclosure is being madepursuant to the Care Everywhere program and may not contain all information available regarding this patient. Last updated 18.[facility] Allergies No known active allergies [...] Department Care Team Description 07/25/2024 10:58 PM AUTOMOBILE WRECKER - 07/26/2024 4:02 AM AUTOMOBILE WRECKER Emergency ER at [address] [address] Keysha Stone MD Nausea and vomiting, unspecified [...] Comments Blood Pressure 144/87 07/26/2024 4:00 AM AUTOMOBILE WRECKER Pulse 53 07/26/2024 4:00 AM AUTOMOBILE WRECKER Temperature 36.7 C (98 F) 07/26/2024 4:00 AM AUTOMOBILE WRECKER Respiratory Rate 13 07/26/2024 4:00 AM AUTOMOBILE WRECKER Oxygen Saturation 98% 07/26/2024 4:00 AM AUTOMOBILE WRECKER Inhaled Oxygen Concentration - - Weight 122.5 kg (270 lb) 07/25/2024 11:00 PM AUTOMOBILE WRECKER Height 182.9 cm (6') 07/25/2024 11:00 PM AUTOMOBILE WRECKER Body Mass Index 36.62 07/25/2024 11:00 PM AUTOMOBILE WRECKER Plan of Treatment Health Maintenance Due Date [...] PELVIS W CONTRAST STAT 07/26/2024 2:35 AM AUTOMOBILE WRECKER Nausea and vomiting, unspecified vomiting type Abdominal pain, generalized PT-INR STAT 07/25/2024 11:50 PM AUTOMOBILE WRECKER SARS-COV-2 (COVID-19) FLU A/B RSV PCR RAPID STAT 07/25/2024 11:40 PM AUTOMOBILE WRECKER XR CHEST 1VW PORTABLE STAT 07/25/2024 11:39 PM AUTOMOBILE WRECKER Nausea and vomiting, unspecified vomiting type MAGNESIUM BLOOD STAT 07/25/2024 11:36 PM AUTOMOBILE WRECKER LIPASE BLOOD STAT 07/25/2024 11:36 PM AUTOMOBILE WRECKER COMPREHENSIVE METABOLIC PANEL STAT 07/25/2024 11:36 PM AUTOMOBILE WRECKER CBC W AUTO DIFFERENTIAL STAT 07/25/2024 11:36 PM AUTOMOBILE WRECKER from Last 3 Months Results * CT ABDOMEN PELVIS W CONTRAST (07/26/2024 2:35 AM AUTOMOBILE WRECKER) Anatomical Region Laterality Modality Abdomen, Pelvis Computed Tomogra phy 07/26/2024 7:17 AM AUTOMOBILE WRECKER Impressions 07/26/2024 7:30 AM AUTOMOBILE WRECKER IMPRESSION: UNREMARKABLE EXAMINATION. > Interpreting Provider: Mindy Cary MD on 07/26/2024 7:30 AM Narrative 07/26/2024 7:[address] ABDOMEN WITH CONTRAST CT PELVIS WITH CONTRAST CLINICAL INDICATION: Severe acute abdominal pain with nausea and vomiting. COMPARISON: None available TECHNIQUE: Preliminary interpretation was provided by [facility]. Axial CT images from the lung bases through the pubic symphysis were obtained following 100 cc Isovue-370 intravenous contrast administration. Oral contrast was not administered. Coronal and sagittal multiplanar reformats were created. All CT scans at [facility] are performed using dose optimization techniques as [...] reformats were created. All CT scans at [facility] are performed using dose optimization techniques as [...] CT ORDERABLES * PT-INR (07/25/2024 11:50 PM AUTOMOBILE WRECKER) Pathologist [facility] PT 13.5 12.1 - 14.8 sec 07/26/2024 12:31 AM AUTOMOBILE WRECKER [facility] INR 1.0 0.9 - 1.1 07/26/2024 12:31 AM AUTOMOBILE WRECKER [facility] Blood BLOOD SPECIMEN / Unknown Venipuncture / Unknown 07/25/2024 11:50 PM AUTOMOBILE WRECKER 07/26/2024 12:16 AM AUTOMOBILE WRECKER Narrative [facility] - 07/26/2024 12:31 AM AUTOMOBILE WRECKER Conventional Warfarin Anticoagulant Therapy: INR Reference Range: 2.0-3.0 Intensive Warfarin Anticoagulant Therapy: INR Reference Range: 2.5-3.5 Keysha Stone MD LAB - COAGULATION ORDERABLES Performing Organization Address City/State/[facility] Co de Phone Number [facility] [address] [place] [address] * SARS-COV-2 (COVID-19) FLU A/B RSV PCR RAPID (07/25/2024 11:40 PM AUTOMOBILE WRECKER) Pathologist [facility] COVID-19 PCR Not detected Not detected 07/26/19 12:25 AM AUTOMOBILE WRECKER [facility] Influenza A PCR Not detected Not detected 07/26/2024 12:25 AM AUTOMOBILE WRECKER [facility] Influenza B PCR Not detected Not detected 07/26/2024 12:25 AM [facility] RSV PCR Not detected Not detected 07/26/2024 12:25 AM AUTOMOBILE WRECKER [facility] Microbiology SPECIMEN FROM NASOPHARYNGEAL STRUCTURE / Unknown Collection / Unknown 07/25/2024 11:40 PM AUTOMOBILE WRECKER 07/25/2024 11:48 PM AUTOMOBILE WRECKER Narrative [facility] - 07/26/2024 12:25 AM AUTOMOBILE WRECKER This nucleic acid amplification assay has been [...] assay are available upon request. Idalia Sharma APRN-DRESS DRAPER LAB - MICROBIOLO GY ORDERABLES Performing Organization Address City/State/[facility] Co de Phone Number [facility] [address] [place] [id number] * XR CHEST 1VW PORTABLE (07/25/2024 11:39 PM AUTOMOBILE WRECKER) Anatomical Region Laterality Modality Chest Computed Radiogr aphy 07/26/2024 8:28 AM AUTOMOBILE WRECKER Impressions 07/26/2024 8:28 AM AUTOMOBILE WRECKER IMPRESSION: No acute disease. > Interpreting Provider: Jack Anderson MD on 07/26/2024 8:28 AM Narrative 07/26/2024 8:28 AM AUTOMOBILE WRECKER Portable Chest AP History: Bloody emesis.. FINDINGS: [...] CBC W AUTO DIFFERENTIAL (07/25/2024 11:36 PM AUTOMOBILE WRECKER) WBC 14.9(H) 4.0 - 10.7 x10E9/L 07/25/2024 11:48 PM [facility] RBC Count 5.63 4.30 - 5.80 x10E12/L 07/25/2024 11:48 PM [facility] Hemoglobin 16.7 13.3 - 17.5 g/dL 07/25/2024 11:48 PM [facility] Hematocrit 47.3 38.7 - 51.1 % 07/25/2024 11:48 PM [facility] MCV 84.0 80.0 - 98.0 fL 07/25/2024 11:48 PM [facility] MCH 29.7 26.7 - 33.6 pg 07/25/2024 11:48 PM [facility] MCHC 35.3 31.7 - 36.3 g/dL 07/25/2024 11:48 PM [facility] RDW-CV 11.8 11.3 - 14.8 % 07/25/2024 11:48 PM [facility] Platelet Count 329 150 - 420 x10E9/L 07/25/2024 11:48 PM [facility] MPV 8.8 7.8 - 11.4 fL 07/25/2024 11:48 PM [facility] Neutrophil % 73.4 41.0 - 74.0 % 07/25/2024 11:48 PM [facility] Lymphocyte % 15.4(L) 17.0 - 47.0 % 07/25/2024 11:48 PM [facility] Monocyte % 10.0 3.0 - 11.0 % 07/25/2024 11:48 PM [facility] Eosinophil % 0.4 0.0 - 7.0 % 07/25/2024 11:48 PM [facility] Basophil % 0.5 0.0 - 1.6 % 07/25/2024 11:48 PM [facility] Immature Granulocytes % 0.3 0.0 - 1.0 % 07/25/2024 11:48 PM [facility] Neutrophil Absolute 10.90(H) 1.60 - 7.50 x10E9/L 07/25/2024 11:48 PM [facility] Lymphocyte Absolute 2.29 1.00 - 4.40 x10E9/L 07/25/2024 11:48 PM [facility] Monocyte Absolute 1.48(H) 0.15 - 1.00 x10E9/L 07/25/2024 11:48 PM [facility] Eosinophil Absolute 0.06 0.00 - 0.60 x10E9/L 07/25/2024 11:48 PM [facility] Basophil Absolute 0.07 0.00 - 0.13 x10E9/L 07/25/2024 11:48 PM [facility] Blood BLOOD SPECIMEN / Unknown Venipuncture / Unknown 07/25/2024 11:36 PM AUTOMOBILE WRECKER 07/25/2024 11:43 PM [facility] Keysha Stone MD LAB - HEMATOLOGY O RDERABLES [facility] [address] [place] [address] * (ABNORMAL) COMPREHENSIVE METABOLIC PANEL (07/25/2024 11:36 PM AUTOMOBILE WRECKER) Glucose 122(H) 70 - 99 mg/dL 07/26/2024 12:01 AM [facility] Sodium 141 136 - 145 mmol/L 07/26/2024 12:01 AM [facility] Potassium 3.6 3.5 - 5.1 mmol/L 07/26/2024 12:01 AM [facility] Chloride 106 98 - 107 mmol/L 07/26/2024 12:01 AM [facility] CO2 20(L) 22 - 29 mmol/L 07/26/2024 12:01 AM [facility] Calcium 10.2 8.4 - 10.4 mg/dL 07/26/2024 12:01 AM [facility] Anion Gap 15 6 - 16 mmol/L 07/26/2024 12:01 AM [facility] BUN 8 5.3 - 18.7 mg/dL 07/26/2024 12:01 AM [facility] Creatinine 0.93 0.72 - 1.25 mg/dL 07/26/2024 12:01 AM [facility] Alkaline Phosphatase 60 40 - 150 U/L 07/26/2024 12:01 AM [facility] ALT 46 0 - 55 U/L 07/26/2024 12:01 AM [facility] AST 27 5 - 34 U/L 07/26/2024 12:01 AM [facility] Protein Total 8.0 6.4 - 8.3 gm/dL 07/26/2024 12:01 AM [facility] Albumin 5.1(H) 3.4 - 5.0 gm/dL 07/26/2024 12:01 AM [facility] Bilirubin Total 1.7(H) 0.2 - 1.2 mg/dL 07/26/2024 12:01 AM [facility] eGFR by CKD-EPI >90 >=90 mL/min/1.7 3 m2 07/26/2024 12:01 AM [facility] Blood BLOOD SPECIMEN / Unknown Venipuncture / Unknown 07/25/2024 11:36 PM AUTOMOBILE WRECKER 07/25/2024 11:43 PM AUTOMOBILE WRECKER Keysha Stone MD LAB - CHEMISTRY OR DERABLES Performing Organization Address [facility] de Phone Number [facility] [phone] [place] [id number] * MAGNESIUM BLOOD (07/25/2024 11:36 PM AUTOMOBILE WRECKER) Magnesium 2.1 1.6 - 2.6 mg/dL 07/26/2024 12:01 AM [facility] Blood BLOOD SPECIMEN / Unknown Venipuncture / Unknown 07/25/2024 11:36 PM AUTOMOBILE WRECKER 07/25/2024 11:43 PM AUTOMOBILE WRECKER Keysha Stone MD LAB - CHEMISTRY OR DERABLES Performing Organization Address [facility] Co de Phone Number [facility] [address] [place] [address] * LIPASE BLOOD (07/25/2024 11:36 PM AUTOMOBILE WRECKER) Lipase 11 <60 U/L 07/26/2024 12:01 AM AUTOMOBILE WRECKER [facility] Blood BLOOD SPECIMEN / Unknown Venipuncture / Unknown 07/25/2024 11:36 PM AUTOMOBILE WRECKER 07/25/2024 11:43 PM AUTOMOBILE WRECKER Keysha Stone MD LAB - CHEMISTRY OR DERABLES [facility] [address] [place] [address] from Last 3 Months Care Teams Crayon Grader Relationship Specialty Start Date End Date Wally Potts APRN-DRESS DRAPER [address] [place] [address] PCP - General 07/25/24
[2024-10-21 08:27] LABS: Influenza A QL RT-PCR Negative (Negative); Influenza B QL RT-PCR Negative (Negative); RSV RNA, RT-PCR Negative (Negative); SARS-CoV-2 RNA PCR Negative (Negative)
[2024-10-21 08:43] VITALS: BP 127/96; PULSE 73; RESP 18; TEMP 36.7; O2SAT 97
--- NOTE | 2024-10-21 08:48 | PC.NURSE ---
On 10/21/24, the student, [digna gamez ], provided care and completed [facility] documentation on this patient. I have reviewed the student's documentation and agree with the findings.
== END 2024-10-21 08:40 | disposition home or self-care (01) ==
PROVIDERS: Emergency Provider Emergency Medicine; PCP Nurse Practitioner Family
DX: B34.9 Viral infection, unspecified (principal); F17.290 Nicotine dependence, other tobacco product, uncomplicated; Z79.899 Other long term (current) drug therapy; Z20.822 Contact with and (suspected) exposure to COVID-19
CPT/HCPCS: 87637; 87651; 99283

== ENCOUNTER 2025-07-05 09:54 | Emergency (ER) | payer OTHER, SELFPAY ==
[2025-07-05 10:03] VITALS: BP 133/82; PULSE 78; RESP 16; TEMP 37.2; O2SAT 100
--- NOTE | 2025-07-05 10:36 | ED.NAVMDI ---
HPI - Nausea/Vomiting/Diarrhea General Chief complaint: Nausea/Vomiting/Diarrhea Stated complaint: Nausea/Headache Time Seen by Provider: 07/05/25 10:15 24-year-old male patient Presents Express Care complaining of nausea, vomiting, diarrhea for 4 days. Patient reports having abdominal cramping. Patient said he initially had fevers 4 days ago but he has and fever since. Patient denies any abdominal pain, body aches, chills. Patient last vomited approximately 3-4 hours ago. Patient has been able to keep fluids down since vomiting. Patient denies any blood or mucus in stools. Patient said he had 4-5 episodes of diarrhea yesterday coming describes as loose stool. Patient has a history of chronic diarrhea, saw GI last year for it. Patient did not get a colonoscopy performed. Patient has not tried any [id number] for relief. Patient denies recent travel outside the country. Source: patient and RN notes reviewed Mode of arrival: ambulatory Limitations: no limitations Related Data Home Medications ?Medication ?Instructions ?Recorded ?Confirmed ?Last Taken ?Type alprazolam 0.25 mg tablet (Xanax) 0.25 mg PO DAILY 10/12/24 10/21/24 Unknown History amlodipine 1 mg/mL oral solution 2.5 mg PO DAILY 10/12/24 10/21/24 Unknown History amoxicillin 500 mg capsule 500 mg PO Q8H 10/12/24 10/21/24 Unknown History pantoprazole 40 mg tablet,delayed 40 mg PO DAILY 10/12/24 10/21/24 Unknown History release sucralfate 1 gram tablet 1 g PO Q6H 10/12/24 10/21/24 Unknown History omeprazole 20 mg capsule,delayed 20 mg PO DAILY 10/21/24 07/05/25 Unknown History release Allergies Allergy/AdvReac Type Severity Reaction Status Date / Time glycopyrrolate (From Robinul) Allergy Unknown Unknown Verified 07/05/25 10:06 Venlafaxine AdvReac Intermediate Sweating Uncoded 10/21/24 08:05 Review of Systems Review of Systems: CONSTITUTIONAL: Denies fever, chills, body aches, or sweats. EYES: Denies visual changes, redness, or discharge. ENT: Denies rhinorrhea, congestion, sore throat, or otalgia. CARDIOVASCULAR: Denies chest pain, palpitations, or edema. RESPIRATORY: Denies cough or dyspnea. GASTROINTESTINAL: Denies abdominal pain, bloody stools, hematochezia. Positive for nausea, vomiting, or diarrhea. GENITOURINARY: Denies dysuria or hematuria. SKIN: Denies rash or itching. MUSCULOSKELETAL: Denies back pain, joint pain, or myalgia. NEUROLOGIC: Denies headache, numbness, or weakness. PSYCHIATRIC: Denies anxiety or depression. All other systems reviewed are negative, except as documented in HPI. PMFSH Past Medical History Medical History Depression Family History Family History Mother Depression Anxiety Scoliosis Chronic back pain Father Diabetes mellitus Chronic back pain Sibling Scoliosis Depression Anxiety Social History Social History Years smoked: 6 Smoking status: Current every day smoker Tobacco type: e-cigarettes/vaping Alcohol intake: never Alcohol use details: occasional Substance use: current Substance use type: marijuana Last use: Couple days ago Living arrangements: with family Spiritual care concerns: No Exam Narrative: GENERAL: This is a well-nourished, well-developed adult, in no apparent distress. They are non ill-appearing, nontoxic appearing. HEAD: normocephalic, atraumatic. EYES: Sclera clear/white. Vision is grossly intact. Conjunctiva normal bilaterally. Extraocular movements intact. EARS: External ears normal, Hearing grossly intact. NOSE: External nose normal THROAT: Mucous membranes moist NECK: Normal range of motion CARDIOVASCULAR: Regular rate and rhythm. Normal S1-S2. No clicks, murmurs, gallops, or rubs. RESPIRATORY: Respiratory rate normal, respiratory effort nonlabored, no respiratory distress. Lung sounds clear to auscultation. Breath sounds equal bilaterally. No adventitious lung sounds. GASTROINTESTINAL: Abdomen soft, flat, generalized tenderness to palpation, nondistended. Bowel sounds are active. No hepato-splenomegaly, or palpable masses. No guarding or rigidity. No rebound tenderness. Negative Izquierdo sign. SKIN: warm, Dry, intact with no suspicious lesions or rash, good texture and turgor. NEURO: awake, alert, and oriented to person, place and time. There were no obvious focal neurologic abnormalities. EXTREMITIES: No joint tenderness, effusion, or edema noted. BACK: Nontender without deformity. No CVA tenderness. Course Course Level of Care: Express Care Visit Vital Signs Vital signs: Vital Signs Temperature 98.9 F 07/05/25 10:03 Pulse Rate 78 07/05/25 10:03 Respiratory Rate 16 07/05/25 10:03 Blood Pressure 133/82 07/05/25 10:03 Pulse Oximetry 100 07/05/25 10:03 Temperature 98.9 F 07/05/25 10:03 Pulse Rate 78 07/05/25 10:03 Respiratory Rate 16 07/05/25 10:03 Blood Pressure 133/82 07/05/25 10:03 Pulse Oximetry 100 07/05/25 10:03 [facility] Narrative Medical decision making narrative: Patient nontoxic appearing, no apparent distress, patient has mild tenderness on exam no guarding or peritoneal findings. Negative Izquierdo sign. Patient has moist mucous membranes, patient is not clinically appear dehydrated. No tachycardia. Patient able to keep things down after he vomits. Patient was seen in urgent care yesterday was given no prescriptions. Will send patient home with Zofran and dicyclomine as he has had in the past. Advised patient's symptoms are not improving the next 2 days any needs to go to the ER for further evaluation and management of his symptoms. Patient verbalized understanding. Discussed physical exam findings. Advised supportive measures and signs/symptoms to go to the ER. Pt is appropriate for outpt treatment and f/u. Differential Diagnosis Differential Diagnosis: Gastroenteritis, cholecystitis, gallstones, gastritis, irritable bowel syndrome, Crohn's disease, colitis Discharge Plan Discharge Clinical Impression: Gastroenteritis Patient Disposition: Home Condition: Stable Instructions: Gastroenteritis (ED) Additional Instructions: It is likely have a viral gastroenteritis. This is normally a self-limiting condition or resolve within 24-48 hours. However sometimes symptoms may linger on up to 7 days. It is recommended not to take anything for the diarrhea and allow the diarrhea to run its course. If the diarrhea persist and you feeling better, you may take Pepto-Bismol as needed to help control the diarrhea. Recommend hydration with plenty of fluids electrolyte supplementation such as Pedialyte. Follow-up PCP in 3-5 days. You may take Zofran as needed for nausea or vomiting. Take dicyclomine as needed for abdominal cramping. If you are unable to keep anything down, developed worsening abdominal pain, fevers, uncontrollable diarrhea, concerns of dehydration, symptoms are not improve the next 2 days, or any other concerns please go to the ER immediately. Patient Language: German Prescriptions: New ondansetron 4 mg tablet,disintegrating 4 mg PO Q8H PRN (Reason: nausea and vomiting) Qty: 12 0RF dicyclomine 20 mg tablet 20 mg PO QID PRN (Reason: abdominal pain) Qty: 20 0RF No Action omeprazole 20 mg capsule,delayed release(DR/EC) 20 mg PO DAILY dicyclomine 10 mg capsule 10 mg PO QID Qty: 120 3RF Patient Comments: pt states doesnt take ibuprofen 600 mg tablet 600 mg PO TID PRN (Reason: pain) Qty: 20 0RF sucralfate 1 gram tablet 1 g PO Q6H pantoprazole 40 mg tablet,delayed release (DR/EC) 40 mg PO DAILY amlodipine 1 mg/mL solution 2.5 mg PO DAILY amoxicillin 500 mg capsule 500 mg PO Q8H alprazolam [Xanax] 0.25 mg tablet 0.25 mg PO DAILY Follow-up/Referrals: Wally Potts APRN [Primary Care Provider, Family Practice] Stand Alone Forms: Work/School Release IP Time of Disposition: 10:30
[2025-07-05 11:01] LABS: EDCOVIDSCREEN Negative (Negative); EDINFLUASCREEN Negative (Negative); EDINFLUBSCREEN Negative (Negative)
== END 2025-07-05 10:35 | disposition home or self-care (01) ==
PROVIDERS: PCP Nurse Practitioner Family
DX: K52.9 Noninfective gastroenteritis and colitis, unspecified (principal); Z20.822 Contact with and (suspected) exposure to COVID-19; F17.290 Nicotine dependence, other tobacco product, uncomplicated; F12.90 Cannabis use, unspecified, uncomplicated
CPT/HCPCS: 87426; 87804; 99213; G0463